=== PATIENT | female | born 1940 | race Caucasian/White ===

== ENCOUNTER → 2016-09-19 | Outpatient (CLI) | payer MEDICARE ==
[~2016-09-19] MED LIST: ACET325T51 PO; ALBU5SOL6 AEROSOL; BISA-82 PO; DOCU-175 PO; FERROUS GLUCON325 M2 PO; HYDR-3989 PO; IPRA0.2S52 AEROSOL; LEVO100T12 PO; MELA1TAB16 PO; MIRT15TA6 PO; OMEP20CA10 PO; ONDA-56 PO; POLY17PO6 PO; POTA500T PO
[2016-09-19 07:46] LABS: BLOOD, URINE NEGATIVE (NEGATIVE); COLOR,URINE YELLOW (YELLOW); LEUKOCYTE ESTERASE ,URINE TRACE (NEGATIVE); NITRITE,URINE NEGATIVE (NEGATIVE); UROBILINOGEN,URINE 0.2 EU/DL (NORMAL)
== END ==
LOC: LABN.PM 07:30
PROVIDERS: ATTEND Family Medicine
DX: N39.0 Urinary tract infection, site not specified (principal)
CPT/HCPCS: 81003; 87086

== ENCOUNTER → 2016-09-30 | Outpatient (CLI) | payer MEDICARE ==
[2016-09-30 07:08] LABS: BASOPHILS % (AUTO) 0.5 % (0-2); EOSINOPHILS % (AUTO) 0.2 % (0-4); HCT - HEMATOCRIT 39.1 % (36-46); LYMPHOCYTES # (AUTO) 1.6 T/MM3 (1-4.8); LYMPHOCYTES % (AUTO) 38.2 % (23-45); MEAN CORPUSCULAR HGB 33.8 UUG (26-34); MEAN CORPUSCULAR HGB CONC(MCHC 33.2 GM/DL (31-37); MEAN CORPUSCULAR VOLUME 101.6 UM3 (80-100); MEAN PLATELET VOLUME 9.1 UM3 (9.4-12.4); MONOCYTES # (AUTO) 0.3 T/MM3 (0-0.8); MONOCYTES % (AUTO) 7.8 % (0-9.0); NEUTROPHILS #(AUTO)-ABSOLUTE 2.2 T/MM3 (1.8-7.7); NEUTROPHILS % (AUTO) 53.3 % (33-66); RED BLOOD COUNT 3.85 M/MM3 (4.00-5.20); WBC - WHITE BLOOD COUNT 4.1 T/MM3 (4.5-11.0)
== END ==
LOC: LABNH.PM 01:56
PROVIDERS: ATTEND Internal Medicine Hematology & Oncology
DX: D64.9 Anemia, unspecified (principal)
CPT/HCPCS: 36415; 85025; P9604

== ENCOUNTER 2017-11-05 15:37 | Inpatient (IN) ==
--- NOTE | 2017-11-05 15:45 | Emergency Department Report ---
Fall HPI - General Stated Complaint: L Femur FX Time Seen by Provider: 11/05/17 15:44 Source: patient, family, EMS Mode of arrival: EMS Limitations: physical limitation - History of Present Illness HPI Narrative: Patient is a 77-year-old female brought to the emergency room for evaluation of left hip fracture. Patient fell at the skilled nursing, her single is not sure if she hit her head. X-rays were done as an outpatient and patient was found have a femur fracture. EMS was called and patient was referred to the emergency department for further evaluation. Patient does have significant dementia, minimal response to questions - Related Data Home Medications Medication Instructions Recorded Confirmed Acetaminophen 650 mg PO Q4HR PRN #0 08/27/15 11/05/17 Melatonin/Pyridoxine [Melatonin 5 5 mg PO HS #0 08/27/15 11/05/17 mg Tablet] Dextran 70/Hypromellose 1 drop EACH EYE Q6H 11/05/17 11/05/17 [Artificial Tears Eye Drops] Famotidine [Pepcid] 20 mg PO DAILY 11/05/17 11/05/17 Levothyroxine Tab [Synthroid] 50 mcg PO DAILY 11/05/17 11/05/17 Meloxicam [Meloxicam] 7.5 mg PO HS 11/05/17 11/05/17 Milk of Magnesia [Mom] 30 ml PO DAILY PRN 11/05/17 11/05/17 OLANZapine [Zyprexa] 2.5 mg PO HS 11/05/17 11/05/17 PEG 3350 17gm PACKET [Miralax] 17 gm PO DAILY 11/05/17 11/05/17 Sertraline [Zoloft] 100 mg PO DAILY 11/05/17 11/05/17 Tramadol [Ultram] 50 - 100 mg PO Q6H PRN 11/05/17 11/05/17 Allergies Allergy/AdvReac Type Severity Reaction Status Date / Time No Known Drug Allergies Allergy Unknown Verified 11/05/17 15:53 Review of Systems Limitations: ROS unobtainable due to patient's medical condition PFSH Patient Stated Medical History Dementia Yes: frontotemporal dementia Other GI Yes: colon cancer Hx Incontinence Yes Chemotherapy Yes: many years ago for colon cancer Depression Yes Other Behavioral Health Yes: had some visual hallucinations, paranoia - Social History Smoking status: Never smoker Substance use type: does not use Alcohol intake frequency: does not drink Physical Exam - General General appearance: alert - Head Head exam: normocephalic, other (patient has old bruising around left orbit nontender to palpation of bony structures) - Eye Eye exam: Present: PERRL, EOMI - ENT ENT exam: Present: normal oropharynx, mucous membranes moist - Neck Neck exam: Present: trachea midline. Absent: tenderness - Chest Chest inspection: Present: symmetric chest wall rise. Absent: tenderness - Respiratory Respiratory exam: Present: normal lung sounds bilaterally. Absent: respiratory distress, wheezes, stridor - Cardiovascular Cardiovascular exam: Present: regular rate, normal rhythm, normal heart sounds - Abdominal Exam Abdominal exam: Present: soft, normal bowel sounds. Absent: distention, tenderness - Extremities Exam Extremities exam: Present: other (patient is tender to palpation of left upper femur, does not want to move left lower extremity) - Skin Skin exam: Present: warm, dry - Neurological Exam Neurological exam: Present: alert Course Vital Signs Temperature 98.4 F 11/05/17 15:37 Pulse Rate 80 11/05/17 15:37 Respiratory Rate 19 11/05/17 15:37 Blood Pressure 124/86 11/05/17 15:37 Pulse Oximetry 94 11/05/17 15:37 Temperature 98.0 F 11/09/17 16:13 Pulse Rate 90 11/09/17 16:36 Respiratory Rate 16 11/09/17 16:13 Blood Pressure 147/96 H 11/09/17 16:13 Pulse Oximetry 95 11/09/17 16:13 Fall - Differential Diagnosis Likely: syncope, dislocation of shoulder region, fracture of wrist, compression fracture, concussion with loss of consciousness, concussion without loss of consciousness - Medical Records Attestation: I reviewed the patient's medical records. - Lab Data Attestation: I reviewed the patient's lab results. Result diagrams: 11/09/17 03:36 11/09/17 03:36 Lab Results 11/05/17 11/05/17 11/05/17 Range/Units 16:03 16:03 16:13 WBC 12.3 H (4.5-11.0) T/MM3 RBC 3.32 L (4.00-5.20) M/MM3 Hgb 10.9 L (12-16) GM/DL Hct 32.6 L (36-46) % MCV 98.2 (80-100) UM3 MCH 32.8 (26-34) UUG MCHC 33.4 (31-37) GM/DL RDW Std Deviation 50.3 H (36.9-50.2) FL Plt Count 161 (130-400) T/MM3 MPV 9.7 (9.4-12.4) UM3 Immature Gran % (Auto) 0.2 (0.0-0.5) % Neut % (Auto) 81.8 H (33-66) % Lymph % (Auto) 9.2 L (23-45) % [place] % (Auto) 8.6 (0-9.0) % Eos % (Auto) 0.0 (0-4) % Baso % (Auto) 0.2 (0-2) % Neut # (Auto) 10.1 H (1.8-7.7) T/MM3 Lymph # (Auto) 1.1 (1-4.8) T/MM3 [place] # (Auto) 1.1 H (0-0.8) T/MM3 Eos # (Auto) 0.0 (0-0.5) T/MM3 Baso # (Auto) 0.0 (0-0.2) T/MM3 Abs Immat Gran (auto) 0.03 (0.00-0.03) T/MM3 Turbidity < 20 (0-20) Sodium 141 (134-144) MEQ/L Potassium 3.9 (3.6-5) MEQ/L Chloride 105 (98-107) MEQ/L Carbon Dioxide 25 (22-30) MEQ/L Anion Gap 11 (5-15) meq/L BUN 29.0 H (7-17) MG/DL Creatinine 0.5 L (0.7-1.2) mg/dL GFR Calculation 119 BUN/Creatinine Ratio 58 H (6-26) RATIO Glucose 124 H (65-110) MG/DL Calculated Osmolality 278 (261-280) MOSM/KG Calcium 8.8 (8.4-10.2) MG/DL Total Bilirubin 0.30 (0.20-1.30) MG/DL Icterus Index < 2 (0-7) AST 32 (14-36) U/L ALT 31 (1-35) U/L Alkaline Phosphatase 115 (38-126) U/L Total Protein 6.0 L (6.3-8.2) g/dL Albumin 3.4 L (3.5-5.0) g/dL Globulin 2.6 (2.4-3.6) G/DL Albumin/Globulin Ratio 1.3 (1.1-2.2) RATIO Specimen Hemolysis < 15 (0-25) Ur Collection Type Urine, void-cc/notcc Urine Color Yellow (YELLOW) Urine Clarity Clear Urine pH 5.5 (5.0-8.0) Ur Specific [place] >=1.030 H (1.015-1.025) Urine Protein Trace A (NEGATIVE) Urine Glucose (UA) Negative (NEGATIVE) Urine Ketones Negative (NEGATIVE) Urine Occult Blood Trace-intact (NEGATIVE) Urine Nitrate Negative (NEGATIVE) Urine Bilirubin Negative (NEGATIVE) Urine Urobilinogen 0.2 (NORMAL) EU/DL Ur Leukocyte Esterase 1+ A (NEGATIVE) Urine RBC 0-1 (0-3) /HPF Urine WBC 1-3 (0-5) /HPF Ur Squamous Epith Cells 0-5 Urine Bacteria Trace H (NEGATIVE) Urine Mucus Present Ur Culture Indicated? Cult not indicated Blood Type Antibody Screen Crossmatch (AHG) 11/05/17 Range/Units 16:24 WBC (4.5-11.0) T/MM3 RBC (4.00-5.20) M/MM3 Hgb (12-16) GM/DL Hct (36-46) % MCV (80-100) UM3 MCH (26-34) UUG MCHC (31-37) GM/DL RDW Std Deviation (36.9-50.2) FL Plt Count (130-400) T/MM3 MPV (9.4-12.4) UM3 Immature Gran % (Auto) (0.0-0.5) % Neut % (Auto) (33-66) % Lymph % (Auto) (23-45) % [place] % (Auto) (0-9.0) % Eos % (Auto) (0-4) % Baso % (Auto) (0-2) % Neut # (Auto) (1.8-7.7) T/MM3 Lymph # (Auto) (1-4.8) T/MM3 [place] # (Auto) (0-0.8) T/MM3 Eos # (Auto) (0-0.5) T/MM3 Baso # (Auto) (0-0.2) T/MM3 Abs Immat Gran (auto) (0.00-0.03) T/MM3 Turbidity (0-20) Sodium (134-144) MEQ/L Potassium (3.6-5) MEQ/L Chloride (98-107) MEQ/L Carbon Dioxide (22-30) MEQ/L Anion Gap (5-15) meq/L BUN (7-17) MG/DL Creatinine (0.7-1.2) mg/dL GFR Calculation BUN/Creatinine Ratio (6-26) RATIO Glucose (65-110) MG/DL Calculated Osmolality (261-280) MOSM/KG Calcium (8.4-10.2) MG/DL Total Bilirubin (0.20-1.30) MG/DL Icterus Index (0-7) AST (14-36) U/L ALT (1-35) U/L Alkaline Phosphatase (38-126) U/L Total Protein (6.3-8.2) g/dL Albumin (3.5-5.0) g/dL Globulin (2.4-3.6) G/DL Albumin/Globulin Ratio (1.1-2.2) RATIO Specimen Hemolysis (0-25) Ur Collection Type Urine Color (YELLOW) Urine Clarity Urine pH (5.0-8.0) Ur Specific [place] (1.015-1.025) Urine Protein (NEGATIVE) Urine Glucose (UA) (NEGATIVE) Urine Ketones (NEGATIVE) Urine Occult Blood (NEGATIVE) Urine Nitrate (NEGATIVE) Urine Bilirubin (NEGATIVE) Urine Urobilinogen (NORMAL) EU/DL Ur Leukocyte Esterase (NEGATIVE) Urine RBC (0-3) /HPF Urine WBC (0-5) /HPF Ur Squamous Epith Cells Urine Bacteria (NEGATIVE) Urine Mucus Ur Culture Indicated? Blood Type O Positive Antibody Screen Negative Crossmatch (AHG) See Detail - Radiology Data Attestation: I reviewed the patient's radiology results. Left femur fracture Right shoulder: Subacute surgical neck fracture humerus CT head: Small subdural hematoma acute Disposition Clinical Impression: Subdural hematoma Intertrochanteric fracture of left hip Qualifiers: Encounter type: initial encounter Fracture type: closed Fracture alignment: displaced Qualified Code(s): S72.142A - Displaced intertrochanteric fracture of left femur, initial encounter for closed fracture Fracture of surgical neck of right humerus Qualifiers: Encounter type: subsequent encounter Fracture type: closed Fracture morphology : unspecified fracture morphology Fracture alignment: displaced Fracture healing : with routine healing Qualified Code(s): S42.211D - Unspecified displaced fracture of surgical neck of right humerus, subsequent encounter for fracture with routine healing Disposition: 02 To [facility] Acute Care Condition: Stable Time of Disposition: 17:35 - Seen By: physician
[2017-11-05] MEDS ORDERED: FentaNYL 100 MCG/2 ML INJECTION IVP ONE (16:21)
[2017-11-05] MEDS: SALINE FLUSH 10ml SYRINGE IVF PRN (16:27)
--- NOTE | 2017-11-05 16:51 | CT Scan Report ---
Indication: fall, head injury contusion above the left eyebrow PROCEDURE: CT head/brain wo con: Encounter: Initial Comparison: April 24, 2017 Technique: Axial CT images through the head were performed without contrast. Iterative Reconstruction dose reducing technique was utilized. FINDINGS: Small area of acute subdural hematoma in the left frontal region measuring 2 x 0.5 cm on axial image #32. Prominent large left frontal subdural hygroma. Moderate to severe generalized atrophy. The ventricles are of normal size, shape, and configuration for the patient's age. There is no evidence of acute midline displacement or mass effect. There are scattered areas of low attenuation in the white matter which most likely represent changes of chronic microvascular ischemia. The CT attenuation of the brain parenchyma is otherwise normal within the cerebellum, brain stem, and cerebral hemispheres. The tympanic cavities and mastoid air cells are free of appreciable disease. There are no definite fractures of the skull base, calvarium, or visualized portion of the midface. IMPRESSION: Small acute left frontal subdural hematoma. Result was discussed with the ordering physician at 1645 on November 05, 2017. .
--- NOTE | 2017-11-05 16:53 | XRay Report ---
Indication: preop intratrochanteric hip fracture PROCEDURE: XR chest 1V: Encounter: Initial Comparison: October 13, 2014 Findings: The lungs are stable in appearance without new focal airspace consolidation. There is no pleural effusion or pneumothorax. The heart size, pulmonary vascularity and mediastinal contours are unchanged. Right IJ port. Impacted right head fracture with mild displacement. IMPRESSION: 1. Right humeral head fracture. 2. No acute cardiopulmonary disease. .
--- NOTE | 2017-11-05 16:58 | XRay Report ---
Indication: fall prior shoulder fracture evaluate PROCEDURE: XR shoulder RT 2-3 views: Encounter: Initial Comparison: None Findings: There is a impacted comminuted fracture of the right humeral head and surgical neck with medial and posterior rotation of the proximal fracture fragment. No additional acute fracture. No dislocation. Overlying soft tissue swelling. Impression: Closed posttraumatic humeral head and surgical neck fracture. .
--- NOTE | 2017-11-05 18:06 | History & Physical Report ---
History of Present Illness Date: 11/05/17 Chief complaint: Fall HPI: Mara Boland is a 77 y/o female with Frontotemporal dementia who presents to [facility] via EMS for evaluation of injuries sustained from fall trauma today. Resides at [facility] in [place], [place] under the care of Dr Brunson. Family reports dementia has been progressive over past months. Her level of alertness and interaction varies. Today, had fall trauma round 1230 this afternoon. Report of hitting head but not losing consciousness. Mobile x-ray obtain of her left hip revealing left intertrochanteric femur fracture. Patient transported to [facility] EMS for evaluation. Was give 25mcg Fenatyl en route. In ER, CXR showing no acute pathology, UA negative for infection, CMP remarkable for BUN at 29 and glucose of 124. CT brain showed small acute left frontal subdural hematoma. 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 Family did not feel patient would wished to be transferred to [place] for neurosurgical intervention. With her hip fracture, they are open to staying at [facility] for surgical repair of her hip fracture primarily to improve her comfort level. Family has worry the functional recovery from hip surgery will be challenging due to her dementia. Indeed, she is still recovering from an old right humeral fracture-has decreased mobility/function to right shoulder and variable pain. Dr Chambers contacted from ED regarding hip fracture. Dr Baptiste contacted and arrangements for inpatient admission at [facility] made. Anticipated length of stay is thought to be greater than 2 midnights. Review of Systems ROS unobtainable: due to mental status (Demenita as well as patient having very decreased LOC at time of my evalution) Past Medical History Medical History Updates: Dementia, Hypothyroidism, OA, Fibromyalgia, GERD, Insomnia, Dry Eyes, Contispation, Colon cancer-with hx resection and chemo, Anxiety disorder Surgical History: Hx colon resection for colon cancer, Hx back fusion, Hx knee replacement, Hx port placement Family History: Unable to Obtain (Demenita limits) - Social History Smoking status: Former smoker (Quit 40+ years ago) Substance use type: does not use Alcohol intake: never Housing: [facility] Current occupational status: retired Current residence: [facility] Social history: Dr Brunson PCP. Medications Home Medications Medication Instructions Recorded Confirmed Type Acetaminophen 650 mg PO Q4HR PRN #0 08/27/15 11/05/17 History Melatonin/Pyridoxine [Melatonin 5 5 mg PO HS #0 08/27/15 11/05/17 History mg Tablet] Dextran 70/Hypromellose 1 drop EACH EYE Q6H 11/05/17 11/05/17 History [Artificial Tears Eye Drops] Famotidine [Pepcid] 20 mg PO DAILY 11/05/17 11/05/17 History Levothyroxine Tab [Synthroid] 50 mcg PO DAILY 11/05/17 11/05/17 History Meloxicam [Meloxicam] 7.5 mg PO HS 11/05/17 11/05/17 History Milk of Magnesia [Mom] 30 ml PO DAILY PRN 11/05/17 11/05/17 History OLANZapine [Zyprexa] 2.5 mg PO HS 11/05/17 11/05/17 History PEG 3350 17gm PACKET [Miralax] 17 gm PO DAILY 11/05/17 11/05/17 History Sertraline [Zoloft] 100 mg PO DAILY 11/05/17 11/05/17 History Tramadol [Ultram] 50 - 100 mg PO Q6H PRN 11/05/17 11/05/17 History Allergies Allergy/AdvReac Type Severity Reaction Status Date / Time No Known Drug Allergies Allergy Unknown Verified 11/05/17 15:53 Exam Vital Signs: Temperature 98.4 F 11/05/17 15:37 Pulse Rate 74 11/05/17 17:15 Respiratory Rate 15 11/05/17 17:15 Blood Pressure 121/65 11/05/17 17:15 Pulse Oximetry 95 11/05/17 17:15 Height/Weight/BMI: Height 1.57 m Weight 62.9 kg - Constitutional Present: well nourished, well developed, somnolent - Routine HEENT Exam Head: Present: normocephalic ENT: Present: mucous membranes moist - Routine Neck Exam Present: supple, trachea midline - Routine Respiratory Exam Present: decreased breath sounds. Absent: rales, respiratory distress, rhonchi , stridor, wheezes, crackles - Routine Cardiovascular Exam Present: RRR, no murmur - Routine Abdominal Exam Present: soft, normoactive bowel sounds, non distended, non tender - Routine Extremities Exam Present: edema (+1 BLE), pulses intact. Absent: cyanosis, clubbing - Routine Skin Exam Present: dry, warm - Routine Neurological Exam Somnolent - Routine Psychiatric Exam Comments: Somnolent Results - Labs CBC & Chem 7: 11/05/17 16:03 11/05/17 16:03 Assessment and Plan (1) Intertrochanteric fracture of left hip Current visit: Yes Status: Acute (2) Subdural hematoma Current visit: Yes Status: Acute (3) Fracture of surgical neck of right humerus Current visit: Yes Status: Chronic Assessment and Plan: Assessment Left intertrochanteric femur fracture Subdural Hematoma Mechanical fall Leukocytosis - suspect stress reaction Hyperglycemia Fracture of surgical neck of right humerus - chronic Dementia Hypothyroidism GERD Constipation COPD OA Anxiety disorder Plan Will admit patient to inpatient status at [facility] under the care of Dr Baptiste Anticipate greater than 2 midnights of care needed. Consult with Dr Chambers for orthopedic evaluation and surgical recommendations for hip fracture. Pain control with MS. Will continue with patient home acetaminophen and tramadol as needed. Perchlorperazine and ondansetron as needed for nausea. Bed rest preoperatively to minimize pain. Work to mobilize patient with PT/OT post op. Harvey to dependent drainage to monitor urine output and minimized need to get up preop. Work to remove Harvey as soon as possible post op. IS for pulmonary toilet. Start routine Senna Plus BID to help bowel function. Continue pt's routine Miralax and prn medications. Patient has been typed and screened in anticipation of potential blood loss from her injury/surgery. Check Vitamin D level secondary to fragility fracture. Start calcium with vit D 600 BID. With patient's advanced dementia will hold on consult for metabolic bone health. NPO after midnight in anticipation of surgery tomorrow. Start NS at 75cc/hr this evening for hydration. Recheck CT brain tomorrow am to monitor subdural hematoma. Recommend against use of Lovenox in post op setting due to SDH. Repeat CBC in am due to leukocytosis and to monitor hemoglobin. Will recheck BMP in am due to IVF use. Home medications will continue. Involve case management to help with discharge disposition - anticipate return to [facility] for care at discharge. Discussed with family about surgical intervention. They are agreeable with surgery from a comfort measure. Their concern is that rehabilitation gain will be minimal and slow due to her dementia. Code status discussed. Family reiterated Do Not Resuscitate, which is in concordance with [place] documentation. Care to return to Dr Brunson at time of discharge from [facility]. DVT Prophylaxis: SCD's GI Prophylaxis: Pepcid Resuscitation Status: Do Not Resuscitate - Time spent with patient Time with patient PN: 70 minutes - Physician Narrative Narrative: Date: 11/05/17 Time: 1800 Hospital Course Summary Disclaimer: The visit summary below is not to be considered part of the above Progress Note. Hospital Course: 11/05/17 Admit patient to inpatient status at [facility] under the care of Dr Baptiste. Left intertrochanteric hip fracture requiring surgical repair. Anticipate greater than 2 midnights of care needed. Consult with Dr Chambers for orthopedic evaluation and surgical recommendations for hip fracture. Pain control with MS. Will continue with patient home acetaminophen and tramadol as needed. Perchlorperazine and ondansetron as needed for nausea. Bed rest preoperatively to minimize pain. Work to mobilize patient with PT/OT post op. Harvey to dependent drainage to monitor urine output and minimized need to get up preop. Work to remove Harvey as soon as possible post op. IS for pulmonary toilet. Start routine Senna Plus BID to help bowel function. Continue pt's routine Miralax and prn medications. Patient has been typed and screened in anticipation of potential blood loss from her injury/surgery. Check Vitamin D level secondary to fragility fracture. Start calcium with vit D 600 BID. With patient's advanced dementia will hold on consult for metabolic bone health. NPO after midnight in anticipation of surgery tomorrow. Start NS at 75cc/hr this evening for hydration. Recheck CT brain tomorrow am to monitor subdural hematoma. Recommend against use of Lovenox in post op setting due to SDH. Repeat CBC in am due to leukocytosis and to monitor hemoglobin. Will recheck BMP in am due to IVF use. Home medications will continue. Involve case management to help with discharge disposition - anticipate return to [facility] for care at discharge. Discussed with family about surgical intervention. They are agreeable with surgery from a comfort measure. Their concern is that rehabilitation gain will be minimal and slow due to her dementia. Code status discussed. Family reiterated Do Not Resuscitate, which is in concordance with [place] documentation. Care to return to Dr Brunson at time of discharge from [facility].
[2017-11-05] MEDS ORDERED: POLYETHYL GLYCOL 3350 17gm PACKET PO PRN (18:19)
[2017-11-05] MEDS ORDERED: PROCHLORPERAZINE 10 MG/2 ML INJECTION IVP PRN (18:19)
[2017-11-05] MEDS ORDERED: HALOPERIDOL 5 MG/ML INJECTION IVP PRN (18:19)
[2017-11-05] MEDS ORDERED: TRAMADOL 50 MG TABLET PO PRN (18:19)
[2017-11-05] MEDS ORDERED: ONDANSETRON ODT 4 MG TABLET PO PRN (18:19)
--- NOTE | 2017-11-05 18:30 | Orthopedic Consult Note ---
Orthopedic Consultation HPI - Consultation Info Consult Date: 11/06/17 Attending Physician: Dionicio Baptiste MD - History of Present Illness Mara Boland is a resident at [facility] in [place], [place]. She fell this morning around 0030 attempting to get out of bed. Reportedly she fell and hit head but did not have LOC. Xray obtained revealing left intertrochanteric femur fracture. Patient was transported via EMS to [facility] for further evaluation. CT brain showed small acute left frontal subdural hematoma. Family did not feel patient would wished to be transferred to [place] for neurosurgical intervention. Family would like to proceed with surgical repair of her hip fracture to improve comfort per hospitalist. Patient fell 3 weeks ago and sustained right humeral head and surgical neck fracture 3 weeks ago. Daughter states due to her age and medical comorbidities they decided to treat conservatively. Patient has been in sling and moving as tolerated. States she hasn't complained of pain with right arm. Prior to this fall patient had been ambulating well with a walker. Since then nursing has been transporting with wheelchair. Daughter (DPOA) reports her dementia has been progressive over the past couple of months. Review of Systems ROS unobtainable: due to mental status [facility] Medical History Updates: Dementia, Hypothyroidism, OA, Fibromyalgia, GERD, Insomnia, Dry Eyes, Contispation, Colon cancer-with hx resection and chemo, Anxiety disorder Surgical History: Hx colon resection for colon cancer, Hx back fusion, Hx knee replacement, Hx port placement - Social History Smoking status: Former smoker (Quit 40+ years ago) Medications Home Medications Medication Instructions Recorded Confirmed Type Acetaminophen 650 mg PO Q4HR PRN #0 08/27/15 11/05/17 History Melatonin/Pyridoxine [Melatonin 5 5 mg PO HS #0 08/27/15 11/05/17 History mg Tablet] Dextran 70/Hypromellose 1 drop EACH EYE Q6H 11/05/17 11/05/17 History [Artificial Tears Eye Drops] Famotidine [Pepcid] 20 mg PO DAILY 11/05/17 11/05/17 History Levothyroxine Tab [Synthroid] 50 mcg PO DAILY 11/05/17 11/05/17 History Meloxicam [Meloxicam] 7.5 mg PO HS 11/05/17 11/05/17 History Milk of Magnesia [Mom] 30 ml PO DAILY PRN 11/05/17 11/05/17 History OLANZapine [Zyprexa] 2.5 mg PO HS 11/05/17 11/05/17 History PEG 3350 17gm PACKET [Miralax] 17 gm PO DAILY 11/05/17 11/05/17 History Sertraline [Zoloft] 100 mg PO DAILY 11/05/17 11/05/17 History Tramadol [Ultram] 50 - 100 mg PO Q6H PRN 11/05/17 11/05/17 History Allergies Allergy/AdvReac Type Severity Reaction Status Date / Time No Known Drug Allergies Allergy Unknown Verified 11/05/17 15:53 Exam - Constitutional Vital Signs: Temperature 98.4 F 11/05/17 15:37 Pulse Rate 74 11/05/17 17:15 Respiratory Rate 15 11/05/17 17:15 Blood Pressure 121/65 11/05/17 17:15 Pulse Oximetry 95 11/05/17 17:15 General: frail appearing, lethargic Orientation: confused Limitations: altered mental status - RUE Postoperative Appearance: extremity compartments are soft and nontender Vascular: radial pulse within normal limits - RLE Vascular: dorsalis pedis pulse within normal limits Right Lower Extremity comments: Left leg shortened and internally rotated. - Labs Result Diagrams: 11/06/17 04:24 11/06/17 04:24 Impression and Recommendation (1) Fracture of surgical neck of right humerus Current visit: Yes Qualifiers: Encounter type: subsequent encounter Fracture type: closed Fracture morphology: unspecified fracture morphology Fracture alignment: displaced Fracture healing: with routine healing Qualified Code(s): S42.211D - Unspecified displaced fracture of surgical neck of right humerus, subsequent encounter for fracture with routine healing Status: Chronic Sling to right arm at this time, will keep immobilized. May remove for ROM of elbow and wrist. (2) Intertrochanteric fracture of left hip Current visit: Yes Qualifiers: Encounter type: initial encounter Fracture type: closed Fracture alignment: displaced Qualified Code(s): S72.142A - Displaced intertrochanteric fracture of left femur, initial encounter for closed fracture Status: Acute NPO after midnight Planned left hip ORIF with long gamma nail tomorrow at [address] Chambers pending stability of subdural hematoma. Will need hospitalist recommendations for anticoagulation therapy post- operatively. Hospitalist managing medically. Hospital Course Summary Disclaimer: The visit summary below is not to be considered part of the above Progress Note.
[2017-11-05] MEDS ORDERED: FALL RISK - PHARMACY CONSULT MC ONE (18:33)
[2017-11-05 18:34] VITALS: BMI 22.1
[2017-11-05] MEDS: NS 1,000 ML IV SCH ×2 (19:02→23:36)
[2017-11-05] MEDS: REFRESH CELLUVISC 1% Eye Drops 0.4ml EACH EYE SCH ×2 (22:10→23:37)
[2017-11-05] MEDS: CALCIUM 600 + VIT D 400 TABLET PO SCH (22:10)
[2017-11-05] MEDS: MELATONIN 5 MG TABLET PO SCH (22:11)
[2017-11-05] MEDS: OLANZapine 2.5 MG TABLET PO SCH (22:11)
[2017-11-05] MEDS: SENNA + DOCUSATE TABLET PO SCH (22:14)
[2017-11-05] MEDS: MELOXICAM 7.5 MG TABLET PO SCH (22:14)
[2017-11-06] MEDS: NS 1,000 ML IV SCH ×5 (00:26→23:44)
[2017-11-06] MEDS: REFRESH CELLUVISC 1% Eye Drops 0.4ml EACH EYE SCH ×3 (05:44→18:24)
--- NOTE | 2017-11-06 08:46 | CT Scan Report ---
Indication: F/U subdural hematoma PROCEDURE: CT head/brain wo con: Encounter: Initial Comparison: November 05, 2017 Technique: Axial CT images through the head were performed without contrast. Iterative Reconstruction dose reducing technique was utilized. FINDINGS: Small left frontal subdural hematoma is unchanged in size. Moderate to severe atrophy again noted. Chronic left frontal subdural hygroma. No new or worsening areas of hemorrhage. No acute territorial stroke. No midline shift or mass effect. No calvarial fractures seen. Impression: Stable appearance of the small left frontal subdural hematoma. .
[2017-11-06] MEDS: LEVOTHYROXINE 50 MCG TABLET PO SCH (09:06)
[2017-11-06] MEDS: SERTRALINE 100 MG TABLET PO SCH (09:06)
[2017-11-06] MEDS: CALCIUM 600 + VIT D 400 TABLET PO SCH ×2 (09:06→21:23)
[2017-11-06] MEDS: FAMOTIDINE 20 MG TABLET PO SCH (09:06)
[2017-11-06] MEDS: POLYETHYL GLYCOL 3350 17gm PACKET PO SCH (09:06)
[2017-11-06] MEDS: SENNA + DOCUSATE TABLET PO SCH ×2 (09:06→21:24)
[2017-11-06] MEDS ORDERED: CEFAZOLIN 1 G INJECTION IVP ONE (10:05)
[2017-11-06] MEDS ORDERED: FentaNYL 250 MCG/5 ML INJECTION ONE (10:17)
[2017-11-06] MEDS ORDERED: KETAMINE 500 MG/10 ML INJECTION ONE (10:17)
[2017-11-06] MEDS ORDERED: PROPOFOL 500 MG/50 ML VIAL ONE ×2 (10:18→11:49)
--- NOTE | 2017-11-06 10:18 | Anesthesia Preoperative Report ---
Anesthesia Preoperative Record - Date and Time Date: 11/06/17 Preoperative Diagnosis: L Intertrochanteric Femur Fracture NPO Since Date: 11/05/17 NPO Since Time: 00:00 Allergies/Adverse Reactions: Allergies Allergy/AdvReac Type Severity Reaction Status Date / Time No Known Drug Allergies Allergy Unknown Verified 11/05/17 15:53 - Vital Signs Vital Signs: Temperature 97.8 F 11/06/17 09:55 Pulse Rate 90 11/06/17 09:55 Respiratory Rate 26 H 11/06/17 09:55 Blood Pressure 162/75 H 11/06/17 09:55 Pulse Oximetry 94 11/06/17 09:55 Height and Weight: Height 1.57 m Weight 54.8 kg Body Mass Index 22.1 - Medications Inpatient Medications: Current Medications Acetaminophen (Tylenol) 650 mg PO Q4HR PRN PRN Reason: P Artificial Tears (Refresh Celluvisc) 1 drop EACH EYE Q6H [facility] Last Admin: 11/06/17 05:44 Dose: Not Given Calcium/Vitamin D (Caltrate + D) 1 tab PO BID [facility] Last Admin: 11/06/17 09:06 Dose: Not Given Cefazolin Sodium (Kefzol 1 Gm Vial) 1 g IVP PREOP ONE Stop: 11/06/17 10:06 Famotidine (Pepcid) 20 mg PO DAILY [facility] Last Admin: 11/06/17 09:06 Dose: Not Given Haloperidol Lactate (Haldol) 0.5 mg IVP Q4H PRN PRN Reason: Agitation Sodium Chloride (Normal Saline) 1,000 mls @ 100 mls/hr IV .Q10H [facility] Last Infusion: 11/06/17 09:38 Dose: 0 mls/hr Levothyroxine Sodium (Synthroid) 50 mcg PO DAILY [facility] Last Admin: 11/06/17 09:06 Dose: Not Given Magnesium Hydroxide (Mom) 30 ml PO DAILY PRN PRN Reason: Constipation Melatonin (Melatonin) 5 mg PO HS [facility] Last Admin: 11/05/17 22:11 Dose: Not Given Meloxicam (Mobic) 7.5 mg PO HS [facility] Last Admin: 11/05/17 22:14 Dose: Not Given Morphine Sulfate (Morphine Sulfate Inj) 4 mg IVP Q2HR PRN PRN Reason: Pain Olanzapine (Zyprexa) 2.5 mg PO HS [facility] Last Admin: 11/05/17 22:11 Dose: 2.5 mg Ondansetron HCl (Zofran Odt Tablet) 4 mg PO Q6H PRN PRN Reason: Nausea &/or vomiting Polyethylene Glycol (Miralax) 17 gm PO DAILY PRN PRN Reason: Constipation Polyethylene Glycol (Miralax) 17 gm PO DAILY [facility] Last Admin: 11/06/17 09:06 Dose: Not Given Prochlorperazine Edisylate (Compazine Iv) 10 mg IVP Q6H PRN PRN Reason: Nausea &/or vomiting Senna/Docusate Sodium (Senna Plus Tablet) 1 tab PO BID [facility] Last Admin: 11/06/17 09:06 Dose: Not Given Sertraline HCl (Zoloft) 100 mg PO DAILY [facility] Last Admin: 11/06/17 09:06 Dose: Not Given Sodium Chloride (Iv Flush) 10 - 80 ml IVF PRN PRN PRN Reason: Flushing Last Admin: 11/05/17 16:27 Dose: 10 ml Tramadol HCl (Ultram) 50 mg PO Q6HR PRN PRN Reason: Pain Home Medications: Home Medications Medication Instructions Recorded Confirmed Type Acetaminophen 650 mg PO Q4HR PRN #0 08/27/15 11/05/17 History Melatonin/Pyridoxine [Melatonin 5 5 mg PO HS #0 08/27/15 11/05/17 History mg Tablet] Dextran 70/Hypromellose 1 drop EACH EYE Q6H 11/05/17 11/05/17 History [Artificial Tears Eye Drops] Famotidine [Pepcid] 20 mg PO DAILY 11/05/17 11/05/17 History Levothyroxine Tab [Synthroid] 50 mcg PO DAILY 11/05/17 11/05/17 History Meloxicam [Meloxicam] 7.5 mg PO HS 11/05/17 11/05/17 History Milk of Magnesia [Mom] 30 ml PO DAILY PRN 11/05/17 11/05/17 History OLANZapine [Zyprexa] 2.5 mg PO HS 11/05/17 11/05/17 History PEG 3350 17gm PACKET [Miralax] 17 gm PO DAILY 11/05/17 11/05/17 History Sertraline [Zoloft] 100 mg PO DAILY 11/05/17 11/05/17 History Tramadol [Ultram] 50 - 100 mg PO Q6H PRN 11/05/17 11/05/17 History Is Patient on Beta Aminta?: No - Medical History Respiratory: Reports: Chronic Obstructive Pulmonary Disease (COPD) DENIES: Sleep Apnea Cardiovascular: Reports: Hypertension Gastrointestional: Reports: Other (colon cancer) Neuro/Musculoskeletal: Reports: Back Problems (back fusion), Depression, Muscle Weakness, Other (subdural hematoma stable with re-CT) Renal/Endocrine: Reports: Thyroid Disease Other History: Reports: Chemotherapy (many years ago for colon cancer) - Surgical History GI Surgery/Treatments: Reports: Colon Resection, Colonoscopy Musculoskeletal Surgery/Tx: Reports: Total Knee Replacement Reproductive Surgery/Treatment: Reports: Oophorectomy Anesthesia Reactions: None Hx Family Anesthesia Reaction: No History of Motion Sickness: No - Social History Smoking Status: Former smoker (Quit 40+ years ago) Hx Chewing Tobacco Use: No Second Hand Exposure: No Substance Use Type: does not use Alcohol Intake: never Alcohol Intake Frequency: does not drink - Pertinent Findings Laboratory: CBC and BMP 11/06/17 04:24 11/06/17 04:24 BMP 11/06/17 04:24 Sodium 142 Potassium 3.7 Chloride 106 Carbon Dioxide 27 BUN 22.0 H Creatinine 0.5 L Glucose 96 Calcium 8.5 EKG: Sinus Rhythm - Airway Assessment Mallampati Score: II TMD: 3 Fingerbreadths Neck Extension: poor Overall Assessment: no airway concerns - ASA ASA Score: 4 - Plan Anesthesia: General TIVA, General Inhalation Gases - Discussion Discussion: Discussed risks/options/alternatives of anesthesia and questions answered. Patient consents. Nursing pain assessment noted. Present for Discussion: family member Attestation Statement: Prior to the delivery of any anesthetic medication, I examined the patient, developed the plan, obtained the patient's consent and discussed the risk and benefits of the procedure with the patient/guardian. - Additional Information Seen by Anesthesia: Yes
[2017-11-06] MEDS ORDERED: LIDOCAINE 1% (10mg/ml) 30ml SDV INJ ONE (10:37)
[2017-11-06] MEDS ORDERED: BUPIVACAINE 0.25% (2.5mg/ml) PF 30ml INJECTION ONE (10:37)
[2017-11-06] MEDS ORDERED: EPHEDRINE 50mg/ml INJECTION ONE (11:10)
[2017-11-06] MEDS ORDERED: SALINE FLUSH 10ml SYRINGE ONE (11:11)
[2017-11-06] MEDS ORDERED: PHENYLEPHRINE INJ 10 MG/ML VIAL IV ONE (11:13)
[2017-11-06] MEDS ORDERED: BUPIV 0.25% 30ml/LIDO 1% 30ml MIXTURE ID ONE (11:32)
--- NOTE | 2017-11-06 13:19 | Remote Fluorsocopy Report ---
Indication: ORIF LEFT HIP PROCEDURE: RF hip LT 2 view: Encounter: Initial Comparison: None Findings: Six fluoroscopic spot images are submitted for interpretation. Images show open reduction and internal fixation of the intertrochanteric left femoral fracture with placement of an intramedullary nail, compression screw and two distal interlocking screws. Impression: Fluoroscopy as above. Fluoroscopy time is 165.6 seconds. Fluoroscopy dose is 2500 mRad. .
[2017-11-06] MEDS ORDERED: NOZIN NASAL SWAB NAS ONE (13:27)
--- NOTE | 2017-11-06 13:30 | Anesthesia Postoperative Note ---
- Date and Time Date: 11/06/17 Time: 13:29 - Status Patient Participated in Evaluation: Patient Participated in Person Vital Signs: Temperature 97.0 F 11/06/17 13:05 Pulse Rate 80 11/06/17 13:20 Respiratory Rate 16 11/06/17 13:20 Blood Pressure 122/59 11/06/17 13:20 Pulse Oximetry 99 11/06/17 13:20 Respiratory Function: Airway Patent Cardiovascular Function: Regular Pulse EKG: Sinus Rhythm Pain Intensity: 0 Hydration: Taking PO Fluids Complications During Recover: None Apparent - Follow-Up Instructions Instructions: Per Surgeon
--- NOTE | 2017-11-06 13:44 | Operative Note ---
DATE OF OPERATION 11/06/2017 PREOPERATIVE DIAGNOSIS Left three-part intertrochanteric hip fracture. POSTOPERATIVE DIAGNOSIS Left three-part intertrochanteric hip fracture. PROCEDURE Open reduction internal fixation with cephalomedullary device of left three- part intertrochanteric hip fracture. SURGEON Adolph Chambers MD CONTACT OFFICER Remi Del Rio PA-C COMPLICATIONS None ANESTHESIA TIVA with local EBL AND FLUIDS Please see Anesthetic records. DESCRIPTION OF PROCEDURE Mrs. Boland and her left hip were identified and marked in the preoperative holding area. She was brought back to the operating suite and placed supine on the fracture table. She was placed under general anesthesia. Both feet were placed in well-padded traction boots. The left leg was placed into traction and internal rotation and adduction and reduction was confirmed on multiple fluoroscopic views. The right leg was placed into extension without traction. The left lower extremity was then prepped and draped in the normal sterile fashion. Time-out was performed. Local injection was administered at every incision site. A 2-3 cm incision was made proximal to the greater trochanter. Sharp dissection was carried down to the bone and then the proximal femur was opened over a guidepin. A long guidepin was then passed down the femoral diaphysis and then I reamed to a size 12.5. I measured for a 340 mm nail and placed a 340 mm gamma nail over a guide jhonathan. The guide jhonathan was then removed. I then placed a 95 mm lag screw into center-center location to the femoral head over a guidepin. This was done using the aiming arm. I then provided compression to the fracture site by using a compression screw and then locked the lag screw proximally. The aiming arm was then removed. Two distal locking bolts were then placed percutaneously using perfect [place] technique from [id number]. Both were 40 mm screws. Multiple fluoroscopic images were taken of the hip joint itself to make sure that we had not penetrated the cortical bone and to ensure we had good hardware placement. All wounds were thoroughly irrigated and closed in layers. Sterile dressings were placed. She was taken out of traction and off the traction table and then allowed to awake from general anesthesia and taken to the recovery room under the care of Anesthesia. She tolerated the procedure well and there were no complications. JADA
[2017-11-06] MEDS: NOZIN NASAL SWAB NAS SCH ×2 (15:27→21:20)
--- NOTE | 2017-11-06 16:16 | Progress Note ---
- Date 11/06/17 Subjective: F/U: Left intertrochanteric femur fracture, Subdural Hematoma, Mechanical fall Resting comfortably in bed post op. Tolerated surgery well. Repeat CT scan showing stability in SDH. Breathing well post op, on 2L with sats 99-100%. Urine output decreased overnight and IVF increased to 100cc/hr. Non verbal at this time. Objective Vital signs: Temperature 97.0 F 11/06/17 13:23 Pulse Rate 102 H 11/06/17 15:10 Respiratory Rate 14 11/06/17 15:10 Blood Pressure 133/60 11/06/17 15:10 Pulse Oximetry 99 11/06/17 15:10 Height/Weight/BMI: Height 1.57 m Weight 54.8 kg Body Mass Index 22.1 - Constitutional Present: well nourished, well developed, average body habitus - Routine HEENT Exam Head: Present: normocephalic Eye: Present: EOMI - Routine Respiratory Exam Present: decreased breath sounds. Absent: rales, respiratory distress, rhonchi , stridor, wheezes, crackles - Routine Cardiovascular Exam Present: RRR, no murmur - Routine Abdominal Exam Present: soft, non distended, non tender. Absent: normoactive bowel sounds ( Decreased) - Routine Exam Comments: Harvey present - Routine Extremities Exam Present: edema (Trace), pulses intact. Absent: cyanosis, clubbing - Routine Musculoskeletal Exam Musculoskeletal: Present: no clubbing or cyanosis - Routine Skin Exam Present: dry, warm - Routine Neurological Exam Somnolent - Routine Psychiatric Exam Comments: Somnolent Results - Labs CBC & Chem 7: 11/06/17 04:24 11/06/17 04:24 Assessment and Plan (1) Intertrochanteric fracture of left hip Current visit: Yes Status: Acute (2) Subdural hematoma Current visit: Yes Status: Acute (3) Fracture of surgical neck of right humerus Current visit: Yes Status: Chronic Assessment and Plan: Assessment Left intertrochanteric femur fracture Subdural Hematoma Mechanical fall Leukocytosis - suspect stress reaction Hyperglycemia Fracture of surgical neck of right humerus - chronic Dementia Hypothyroidism GERD Constipation COPD OA Anxiety disorder Plan Tolerated surgery well. Will continue with IVF, decreasing as oral drive improves. Continue Harvey to DD as urine output was decreased overnight. Try to remove in near future. Post op pain control. Continue to work for bowel function. PT/OT as able - suspect with patients dementia gains will be slow. CM making care plans for return to [facility] ([place], [place]) for recovery once she is medically stable. Will recheck BMP in am secondary to IVF. Repeat CBC in am to monitor for post op anemia. Case discussed with Dr Chambers pre and post op. Time spent with patient care 25 minutes. DVT Prophylaxis: SCD's Resuscitation Status: Do Not Resuscitate - Time spent with patient Time with patient PN: 25 minutes - Physician Narrative Physician: Dionicio Baptitse MD Narrative: Date: 11/06/17 Time: 1613 Hospital Course Summary Disclaimer: The visit summary below is not to be considered part of the above Progress Note. Hospital Course: 11/05/17 Admit patient to inpatient status at [facility] under the care of Dr Baptiste. Left intertrochanteric hip fracture requiring surgical repair. Anticipate greater than 2 midnights of care needed. Consult with Dr Chambers for orthopedic evaluation and surgical recommendations for hip fracture. Pain control with MS. Will continue with patient home acetaminophen and tramadol as needed. Perchlorperazine and ondansetron as needed for nausea. Bed rest preoperatively to minimize pain. Work to mobilize patient with PT/OT post op. Harvey to dependent drainage to monitor urine output and minimized need to get up preop. Work to remove Harvey as soon as possible post op. IS for pulmonary toilet. Start routine Senna Plus BID to help bowel function. Continue pt's routine Miralax and prn medications. Patient has been typed and screened in anticipation of potential blood loss from her injury/surgery. Check Vitamin D level secondary to fragility fracture. Start calcium with vit D 600 BID. With patient's advanced dementia will hold on consult for metabolic bone health. NPO after midnight in anticipation of surgery tomorrow. Start NS at 75cc/hr this evening for hydration. Recheck CT brain tomorrow am to monitor subdural hematoma. Recommend against use of Lovenox in post op setting due to SDH. Repeat CBC in am due to leukocytosis and to monitor hemoglobin. Will recheck BMP in am due to IVF use. Home medications will continue. Involve case management to help with discharge disposition - anticipate return to [facility] for care at discharge. Discussed with family about surgical intervention. They are agreeable with surgery from a comfort measure. Their concern is that rehabilitation gain will be minimal and slow due to her dementia. Code status discussed. Family reiterated Do Not Resuscitate, which is in concordance with CT documentation. Care to return to Dr Brunson at time of discharge from [facility]. 11/06/17 OP Day: ORIF with cephalomedullary device of left three-part intertrochanteric hip fracture. Tolerated surgery well. Will continue with IVF, decreasing as oral drive improves. Continue Harvey to DD as urine output was decreased overnight. Try to remove in near future. Post op pain control. Continue to work for bowel function. PT/OT as able - suspect with patients dementia gains will be slow. CM making care plans for return to [facility] ([place], [place]) for recovery once she is medically stable.
[2017-11-06] MEDS: CEFAZOLIN 1 G in NS 100 ML IV SCH (19:10)
[2017-11-06] MEDS: OLANZapine 2.5 MG TABLET PO SCH (21:21)
[2017-11-06] MEDS: MELOXICAM 7.5 MG TABLET PO SCH (21:22)
[2017-11-06] MEDS: MELATONIN 5 MG TABLET PO SCH (21:24)
[2017-11-07] MEDS: REFRESH CELLUVISC 1% Eye Drops 0.4ml EACH EYE SCH ×5 (00:47→23:52)
[2017-11-07] MEDS: CEFAZOLIN 1 G in NS 100 ML IV SCH (04:13)
[2017-11-07] MEDS: NOZIN NASAL SWAB NAS SCH ×3 (05:29→21:14)
[2017-11-07] MEDS ORDERED: NS FLUSH BAG 500ml IV PRN ×2 (06:19→07:46)
--- NOTE | 2017-11-07 06:41 | Orthopedic Progress Note ---
Date: Date: 11/07/17 Time: 637 Subjective/Severity of Illness: Mara is resting comfortably. She retracts from my exam, but does not open her eyes or converse. Hbg just drawn is 5.7 and supposedly re run to confirm by lab staff. I asked the nurse to call the hospitalist to make them aware. VVS, afebrile, renal function is stable. Has known left subdural hematoma. Orthopedic Exam Vital signs: Temperature 97.9 F 11/07/17 04:00 Pulse Rate 97 11/07/17 04:00 Respiratory Rate 16 11/07/17 04:00 Blood Pressure 113/65 11/07/17 04:00 Pulse Oximetry 96 11/07/17 04:00 - Constitutional General Appearance: Present: no acute distress, somnolent - Respiratory Exam Present: non-labored - Cardiovascular Exam Present: pedal pulses intact - Abdominal Exam Present: soft - Extremities Exam Present: edema (Trace), pulses intact. Absent: cyanosis, clubbing - Dressing Dressing: intact, bloody drainage (non saturated.) - Integumentary Exam Present: pink, warm, dry - Neurological Exam Present: other (downgoing Babinski) - Labs Result Diagrams: 11/07/17 04:23 11/07/17 04:23 Abnormal lab results 11/07/17 11/07/17 Range/Units 04:23 04:23 RBC 1.74 L (4.00-5.20) M/MM3 Hgb 5.7 L* D (12-16) GM/DL Hct 17.9 L* D (36-46) % MCV 102.9 H (80-100) UM3 RDW Std Deviation 51.8 H (36.9-50.2) FL Plt Count 92 L (130-400) T/MM3 Neut % (Auto) 74.1 H (33-66) % Lymph % (Auto) 16.1 L (23-45) % Potassium 3.3 L (3.6-5) MEQ/L Chloride 112 H (98-107) MEQ/L Creatinine 0.4 L (0.7-1.2) mg/dL BUN/Creatinine Ratio 33 H (6-26) RATIO Calcium 7.5 L D (8.4-10.2) MG/DL H & H 11/06/17 11/07/17 Range/Units 04:24 04:23 Hgb 9.2 L D 5.7 L* D (12-16) GM/DL Hct 28.8 L D 17.9 L* D (36-46) % Orthopedic Assessment and Plan (1) Intertrochanteric fracture of left hip Status: Acute Qualifiers: Encounter type: initial encounter Fracture type: closed Fracture alignment: displaced Qualified Code(s): S72.142A - Displaced intertrochanteric fracture of left femur, initial encounter for closed fracture Assessment and Plan: s/p left long IM nail for IT fracture by Dr. Chambers on 11/06/17 PT/OT for mobilization once able in view of anemia, and comorbid conditions No anticoagulation presently due to subdural hematoma; will continue with SCD's and appreciate hospitalist input on this matter. (2) Fracture of surgical neck of right humerus Status: Chronic Qualifiers: Encounter type: subsequent encounter Fracture type: closed Fracture morphology: unspecified fracture morphology Fracture alignment: displaced Fracture healing: with routine healing Qualified Code(s): S42.211D - Unspecified displaced fracture of surgical neck of right humerus, subsequent encounter for fracture with routine healing Assessment and Plan: continue with sling for comfort; non operative care. (3) Anemia Status: Acute Assessment and Plan: decision for transfusion as per hospitalist. Hospital Course Summary Disclaimer: The visit summary below is not to be considered part of the above Progress Note. Hospital Course: 11/05/17 Admit [place] [facility] [place] the care of Dr Baptiste. Left intertrochanteric hip fracture requiring surgical repair. Anticipate greater than 2 midnights of care needed. Consult with Dr Chambers for orthopedic evaluation and surgical recommendations for hip fracture. Pain control with MS. Will continue with patient home acetaminophen and tramadol as needed. Perchlorperazine and ondansetron as needed for nausea. Bed rest preoperatively to minimize pain. Work to mobilize patient with PT/OT post op. Harvey to dependent drainage to monitor urine output and minimized need to get up preop. Work to remove Harvey as soon as possible post op. IS for pulmonary toilet. Start routine Senna Plus BID to help bowel function. Continue pt's routine Miralax and prn medications. Patient has been typed and screened in anticipation of potential blood loss from her injury/surgery. Check Vitamin D level secondary to fragility fracture. Start calcium with vit D 600 BID. With patient's advanced dementia will hold on consult for metabolic bone health. NPO after midnight in anticipation of surgery tomorrow. Start NS at 75cc/hr this evening for hydration. Recheck CT brain tomorrow am to monitor subdural hematoma. Recommend against use of Lovenox in post op setting due to SDH. Repeat CBC in am due to leukocytosis and to monitor hemoglobin. Will recheck BMP in am due to IVF use. Home medications will continue. Involve case management to help with discharge disposition - anticipate return to [facility] for care at discharge. Discussed with family about surgical intervention. They are agreeable with surgery from a comfort measure. Their concern is that rehabilitation gain will be minimal and slow due to her dementia. Code status discussed. Family reiterated Do Not Resuscitate, which is in concordance with [place] documentation. Care to return to Dr Brunson at time of discharge from [facility] 11/06/17 OP Day: ORIF with cephalomedullary device of left three-part intertrochanteric hip fracture. Tolerated surgery well. Will continue with IVF, decreasing as oral drive improves. Continue Harvey to DD as urine output was decreased overnight. Try to remove in near future. Post op pain control. Continue to work for bowel function. PT/OT as able - suspect with patients dementia gains will be slow. CM making care plans for return to [facility] for recovery once she is medically stable.
[2017-11-07] MEDS: NS 1,000 ML IV SCH (06:42)
[2017-11-07] MEDS ORDERED: FUROSEMIDE 20 MG/2 ML INJECTION IVP ONE (07:46)
[2017-11-07] MEDS: SERTRALINE 100 MG TABLET PO SCH (09:19)
[2017-11-07] MEDS: LEVOTHYROXINE 50 MCG TABLET PO SCH (09:19)
[2017-11-07] MEDS: POLYETHYL GLYCOL 3350 17gm PACKET PO SCH (09:19)
[2017-11-07] MEDS: CALCIUM 600 + VIT D 400 TABLET PO SCH ×2 (09:19→20:30)
[2017-11-07] MEDS: SENNA + DOCUSATE TABLET PO SCH ×2 (09:19→20:30)
[2017-11-07] MEDS: FAMOTIDINE 20 MG TABLET PO SCH (09:19)
--- NOTE | 2017-11-07 13:21 | Progress Note ---
- Date 11/07/17 Subjective: Minimally responsive this morning. Hb resulted at 5.7, receiving 1st unit of PRBC now. Mildly elevated temp with PRBC. Not answering questions for me. Nonverbal at baseline per report. Objective Vital signs: Temperature 99.6 F 11/07/17 11:21 Pulse Rate 89 11/07/17 11:21 Respiratory Rate 18 11/07/17 11:21 Blood Pressure 112/69 11/07/17 11:21 Pulse Oximetry 95 11/07/17 11:21 Rhythm: Sinus Tachycardia Height/Weight/BMI: Height 1.57 m Weight 62.6 kg Body Mass Index 22.1 - Constitutional Present: no acute distress, somnolent - Routine HEENT Exam Head: Present: normocephalic ENT: Present: mucous membranes moist, oropharynx clear - Routine Respiratory Exam Present: decreased breath sounds. Absent: wheezes, crackles - Routine Cardiovascular Exam Present: tachycardia - Routine Abdominal Exam Present: soft, non distended, non tender - Routine Extremities Exam Present: no edema - Routine Skin Exam Present: dry, warm. Absent: rash - Routine Psychiatric Exam Present: unable to assess Results - Labs CBC & Chem 7: 11/07/17 04:23 11/07/17 04:23 Assessment and Plan Assessment and Plan: Assessment Left intertrochanteric femur fracture Subdural Hematoma Mechanical fall Leukocytosis - suspect stress reaction Hyperglycemia Fracture of surgical neck of right humerus - chronic Dementia Hypothyroidism GERD Constipation COPD OA Anxiety disorder Anemia, acute blood loss + chronic disease, Hb 5.7 today (from 9.2) Hypokalemia; K 3.3 Plan Continue IVF at 50 cc/hour but will change to 1/2NS + KCL due to hypokalemia. 2 units PRBC to be given this AM with 20 mg IV lasix in between and Hb recheck this afternoon. Continue off all anticoagulation. Continue granger to DD today, will plan to remove tomorrow. Follow pending Vit D level. If ongoing fevers will reculture urine and obtain CXR, suspect mild elevation in temp due to PRBC. Keep NPO acutely until more able to awaken and take nutrition. PT/OT as able - suspect with patients dementia gains will be slow and she is poorly responsive today. CM making care plans for [facility] for [facility] once she is medically stable. Recheck renal panel, CBC, Mg in AM for surveillance. Case discussed with bedside RN. DVT Prophylaxis: SCD's Resuscitation Status: Do Not Resuscitate - Physician Narrative Narrative: Date: 11/07/17 Time: 1315 Hospital Course Summary Disclaimer: The visit summary below is not to be considered part of the above Progress Note. Hospital Course: 11/05/17 Admit patient to inpatient status at [facility] [place] the care of Dr Baptiste. Left intertrochanteric hip fracture requiring surgical repair. Anticipate greater than 2 midnights of care needed. Consult with Dr Chambers for orthopedic evaluation and surgical recommendations for hip fracture. Pain control with MS. Will continue with patient home acetaminophen and tramadol as needed. Perchlorperazine and ondansetron as needed for nausea. Bed rest preoperatively to minimize pain. Work to mobilize patient with PT/OT post op. Granger to dependent drainage to monitor urine output and minimized need to get up preop. Work to remove Granger as soon as possible post op. IS for pulmonary toilet. Start routine Senna Plus BID to help bowel function. Continue pt's routine Miralax and prn medications. Patient has been typed and screened in anticipation of potential blood loss from her injury/surgery. Check Vitamin D level secondary to fragility fracture. Start calcium with vit D 600 BID. With patient's advanced dementia will hold on consult for metabolic bone health. NPO after midnight in anticipation of surgery tomorrow. Start NS at 75cc/hr this evening for hydration. Recheck CT brain tomorrow am to monitor subdural hematoma. Recommend against use of Lovenox in post op setting due to SDH. Repeat CBC in am due to leukocytosis and to monitor hemoglobin. Will recheck BMP in am due to IVF use. Home medications will continue. Involve case management to help with discharge disposition - anticipate return to [facility] for care at discharge. Discussed with family about surgical intervention. They are agreeable with surgery from a comfort measure. Their concern is that rehabilitation gain will be minimal and slow due to her dementia. Code status discussed. Family reiterated Do Not Resuscitate, which is in concordance with [place] documentation. Care to return to Dr Brunson at time of discharge from [facility]. 11/06/17 OP Day: ORIF with cephalomedullary device of left three-part intertrochanteric hip fracture. Tolerated surgery well. Will continue with IVF, decreasing as oral drive improves. Continue Granger to DD as urine output was decreased overnight. Try to remove in near future. Post op pain control. Continue to work for bowel function. PT/OT as able - suspect with patients dementia gains will be slow. CM making care plans for return to [facility] for recovery once she is medically stable. 11/07/17 Continue IVF at 50 cc/hour but will change to 1/2NS + KCL due to hypokalemia. 2 units PRBC to be given this AM with 20 mg IV lasix in between and Hb recheck this afternoon. Continue off all anticoagulation. Continue granger to DD today, will plan to remove tomorrow. Follow pending Vit D level. If ongoing fevers will reculture urine and obtain CXR, suspect mild elevation in temp due to PRBC. Keep NPO acutely until more able to awaken and take nutrition. PT/OT as able - suspect with patients dementia gains will be slow and she is poorly responsive today. CM making care plans for return to [facility] for recovery once she is medically stable. Recheck renal panel, CBC, Mg in AM for surveillance.
[2017-11-07] MEDS: 1/2 NS with KCL 20mEq 1,000 ML IV SCH (14:25)
[2017-11-07] MEDS: MORPHINE SULFATE 4mg INJECTION IVP PRN ×2 (16:17→21:37)
[2017-11-07] MEDS: MELATONIN 5 MG TABLET PO SCH (20:30)
[2017-11-07] MEDS: OLANZapine 2.5 MG TABLET PO SCH (20:30)
[2017-11-07] MEDS: MELOXICAM 7.5 MG TABLET PO SCH (20:30)
[2017-11-08] MEDS: NOZIN NASAL SWAB NAS SCH ×3 (04:40→20:27)
[2017-11-08] MEDS: REFRESH CELLUVISC 1% Eye Drops 0.4ml EACH EYE SCH ×3 (06:21→18:04)
[2017-11-08] MEDS: 1/2 NS with KCL 20mEq 1,000 ML IV SCH (06:21)
[2017-11-08] MEDS: LEVOTHYROXINE 50 MCG TABLET PO SCH ×2 (08:12→10:16)
[2017-11-08] MEDS: POLYETHYL GLYCOL 3350 17gm PACKET PO SCH (08:12)
[2017-11-08] MEDS: SERTRALINE 100 MG TABLET PO SCH ×2 (08:12→10:16)
[2017-11-08] MEDS: SENNA + DOCUSATE TABLET PO SCH ×3 (08:12→20:26)
[2017-11-08] MEDS: FAMOTIDINE 20 MG TABLET PO SCH ×2 (08:12→10:16)
[2017-11-08] MEDS: CALCIUM 600 + VIT D 400 TABLET PO SCH ×3 (08:12→20:26)
--- NOTE | 2017-11-08 09:18 | XRay Report ---
Indication: TEMPERATURE PROCEDURE: XR chest 1V: Encounter: Initial Comparison: November 05, 2017 Findings: Lungs are stable and grossly clear. No pleural effusion or pneumothorax. Heart size and mediastinal contours are stable. Pulmonary vascularity is unchanged. Right IJ port. Impression: Stable chest without acute cardiopulmonary disease. There is a preliminary report by virtual radiologic. .
[2017-11-08] MEDS: POTASSIUM CHLORIDE PREMIX 10 MEQ/100 ML BAG IV SCH ×4 (10:02→13:28)
--- NOTE | 2017-11-08 13:12 | Progress Note ---
- Date 11/08/17 Subjective: Awake and alert today, answers some questions for me. Willing to try some food this morning. No acute events overnight, slept well. Objective Vital signs: Temperature 98.9 F 11/08/17 11:12 Pulse Rate 102 H 11/08/17 11:12 Respiratory Rate 16 11/08/17 11:12 Blood Pressure 118/61 11/08/17 11:12 Pulse Oximetry 96 11/08/17 11:12 Rhythm: Normal Sinus Rhythm Height/Weight/BMI: Height 1.57 m Weight 63 kg Body Mass Index 22.1 - Constitutional Present: no acute distress, well nourished, well developed - Routine HEENT Exam Head: Present: normocephalic, atraumatic Eye: Present: PERRL ENT: Present: mucous membranes moist, oropharynx clear - Routine Respiratory Exam Present: CTA bilaterally. Absent: rales, crackles - Routine Cardiovascular Exam Present: RRR - Routine Abdominal Exam Present: soft, non distended, non tender - Routine Extremities Exam Present: no edema, pulses intact - Routine Skin Exam Present: dry, warm. Absent: rash - Routine Neurological Exam Present: alert, normal speech Results - Labs CBC & Chem 7: 11/08/17 04:29 11/08/17 04:29 - Impressions Date of Exam: 11/07/17 Ordering Provider: Corinna Osman Type of Exam(s): XR chest 1V Reason for Exam(s): TEMPERATURE Indication: TEMPERATURE PROCEDURE: XR chest 1V: Encounter: Initial Comparison: November 05, 2017 Findings: Lungs are stable and grossly clear. No pleural effusion or pneumothorax. Heart size and mediastinal contours are stable. Pulmonary vascularity is unchanged. Right IJ port. Impression: Stable chest without acute cardiopulmonary disease. Assessment and Plan Assessment and Plan: Assessment Left intertrochanteric femur fracture Subdural Hematoma Mechanical fall Leukocytosis - suspect stress reaction Hyperglycemia Fracture of surgical neck of right humerus - chronic Dementia Hypothyroidism GERD Constipation COPD OA Anxiety disorder Anemia, acute blood loss + chronic disease, Hb 5.7 on 11/07, received 2 units PRBC Hypokalemia; K 3.1 despite IV repletion Vitamin D deficiency Plan Hold further maintenance fluids Resume po meds if tolerating oral intake KCl 40 meq IV over 4 hours this morning Continue off all anticoagulation. Discontinue granger today Start cholecalciferol 2000 units daily for replacement PT/OT as able - suspect with patients dementia gains will be slow but she is more responsive today CM making care plans for return to [facility] for recovery once she is medically stable. Recheck renal panel, CBC, in AM for surveillance. Case discussed with bedside RN. DVT Prophylaxis: SCD's Resuscitation Status: Do Not Resuscitate - Physician Narrative Narrative: Date: 11/08/17 Time: 1307 Hospital Course Summary Disclaimer: The visit summary below is not to be considered part of the above Progress Note. Hospital Course: 11/05/17 Admit patient to inpatient status at [facility] [place] the care of Dr Baptiste. Left intertrochanteric hip fracture requiring surgical repair. Anticipate greater than 2 midnights of care needed. Consult with Dr Chambers for orthopedic evaluation and surgical recommendations for hip fracture. Pain control with MS. Will continue with patient home acetaminophen and tramadol as needed. Perchlorperazine and ondansetron as needed for nausea. Bed rest preoperatively to minimize pain. Work to mobilize patient with PT/OT post op. Granger to dependent drainage to monitor urine output and minimized need to get up preop. Work to remove Granger as soon as possible post op. IS for pulmonary toilet. Start routine Senna Plus BID to help bowel function. Continue pt's routine Miralax and prn medications. Patient has been typed and screened in anticipation of potential blood loss from her injury/surgery. Check Vitamin D level secondary to fragility fracture. Start calcium with vit D 600 BID. With patient's advanced dementia will hold on consult for metabolic bone health. NPO after midnight in anticipation of surgery tomorrow. Start NS at 75cc/hr this evening for hydration. Recheck CT brain tomorrow am to monitor subdural hematoma. Recommend against use of Lovenox in post op setting due to SDH. Repeat CBC in am due to leukocytosis and to monitor hemoglobin. Will recheck BMP in am due to IVF use. Home medications will continue. Involve case management to help with discharge disposition - anticipate return to [facility] for care at discharge. Discussed with family about surgical intervention. They are agreeable with surgery from a comfort measure. Their concern is that rehabilitation gain will be minimal and slow due to her dementia. Code status discussed. Family reiterated Do Not Resuscitate, which is in concordance with [place] documentation. Care to return to Dr Brunson at time of discharge from [facility] 11/06/17 OP Day: ORIF with cephalomedullary device of left three-part intertrochanteric hip fracture. Tolerated surgery well. Will continue with IVF, decreasing as oral drive improves. Continue Granger to DD as urine output was decreased overnight. Try to remove in near future. Post op pain control. Continue to work for bowel function. PT/OT as able - suspect with patients dementia gains will be slow. CM making care plans for return to [facility] for recovery once she is medically stable. 11/07/17 Continue IVF at 50 cc/hour but will change to 1/2NS + KCL due to hypokalemia. 2 units PRBC to be given this AM with 20 mg IV lasix in between and Hb recheck this afternoon. Continue off all anticoagulation. Continue granger to DD today, will plan to remove tomorrow. Follow pending Vit D level. If ongoing fevers will reculture urine and obtain CXR, suspect mild elevation in temp due to PRBC. Keep NPO acutely until more able to awaken and take nutrition. PT/OT as able - suspect with patients dementia gains will be slow and she is poorly responsive today. CM making care plans for return to [facility] for recovery once she is medically stable. Recheck renal panel, CBC, Mg in AM for surveillance. 11/08/17 Hold further maintenance fluids Resume po meds if tolerating oral intake KCl 40 meq IV over 4 hours this morning Continue off all anticoagulation. Discontinue granger today Start cholecalciferol 2000 units daily for replacement PT/OT as able - suspect with patients dementia gains will be slow but she is more responsive today CM making care plans for return to [facility] for recovery once she is medically stable. Recheck renal panel, CBC, in AM for surveillance.
--- NOTE | 2017-11-08 16:21 | Orthopedic Progress Note ---
Date: Date: 11/08/17 Time: 1617 Subjective/Severity of Illness: Mara is resting comfortably. She had a unit of PRBC's yesterday. Hgb is improved to 8.5. VVS, afebrile, renal function is stable. Has known subdural hematoma. She does not respond much for me. K is 3.1 despite hospitalist replacement; they continue to address this. Orthopedic Exam Vital signs: Temperature 97.9 F 11/07/17 04:00 Pulse Rate 97 11/07/17 04:00 Respiratory Rate 16 11/07/17 04:00 Blood Pressure 113/65 11/07/17 04:00 Pulse Oximetry 96 11/07/17 04:00 - Constitutional General Appearance: Present: no acute distress, somnolent - Respiratory Exam Present: non-labored - Cardiovascular Exam Present: pedal pulses intact - Abdominal Exam Present: soft - Extremities Exam Present: no edema, pulses intact - Dressing Dressing: intact, bloody drainage (non saturated. Stable from yesterday.) - Integumentary Exam Present: pink, warm, dry - Neurological Exam Present: intact to light touch, other (downgoing Babinski) - Labs Result Diagrams: 11/08/17 04:29 11/08/17 04:29 Abnormal lab results 11/07/17 11/08/17 11/08/17 Range/Units 18:20 04:29 04:29 RBC 2.69 L (4.00-5.20) M/MM3 Hgb 8.5 L (12-16) GM/DL Hct 25.4 L D (36-46) % RDW Std Deviation 54.5 H (36.9-50.2) FL Plt Count 99 L (130-400) T/MM3 Neut % (Auto) 82.4 H (33-66) % Lymph % (Auto) 9.2 L (23-45) % Neut # (Auto) 8.0 H (1.8-7.7) T/MM3 Lymph # (Auto) 0.9 L (1-4.8) T/MM3 INR (0.92-1.18) Potassium 3.1 L (3.6-5) MEQ/L Creatinine 0.4 L (0.7-1.2) mg/dL BUN/Creatinine Ratio 33 H (6-26) RATIO Calcium 7.9 L (8.4-10.2) MG/DL Phosphorus 2.3 L (2.5-4.5) MG/DL Albumin 2.6 L (3.5-5.0) g/dL Urine Ketones Trace A (NEGATIVE) Urine Occult Blood 1+ A (NEGATIVE) Urine Bacteria 1+ H (NEGATIVE) 11/08/17 Range/Units 09:07 RBC (4.00-5.20) M/MM3 Hgb (12-16) GM/DL Hct (36-46) % RDW Std Deviation (36.9-50.2) FL Plt Count (130-400) T/MM3 Neut % (Auto) (33-66) % Lymph % (Auto) (23-45) % Neut # (Auto) (1.8-7.7) T/MM3 Lymph # (Auto) (1-4.8) T/MM3 INR 1.19 H (0.92-1.18) Potassium (3.6-5) MEQ/L Creatinine (0.7-1.2) mg/dL BUN/Creatinine Ratio (6-26) RATIO Calcium (8.4-10.2) MG/DL Phosphorus (2.5-4.5) MG/DL Albumin (3.5-5.0) g/dL Urine Ketones (NEGATIVE) Urine Occult Blood (NEGATIVE) Urine Bacteria (NEGATIVE) H & H 11/06/17 11/07/17 11/07/17 Range/Units 04:24 04:23 14:24 Hgb 9.2 L D 5.7 L* D 9.5 L D (12-16) GM/DL Hct 28.8 L D 17.9 L* D (36-46) % 11/08/17 Range/Units 04:29 Hgb 8.5 L (12-16) GM/DL Hct 25.4 L D (36-46) % Coagulation 11/08/17 Range/Units 09:07 INR 1.19 H (0.92-1.18) Orthopedic Assessment and Plan (1) Intertrochanteric fracture of left hip Status: Acute Qualifiers: Encounter type: initial encounter Fracture type: closed Fracture alignment: displaced Qualified Code(s): S72.142A - Displaced intertrochanteric fracture of left femur, initial encounter for closed fracture Assessment and Plan: s/p left long IM nail for IT fracture by Dr. Chambers on 11/06/17 PT/OT for mobilization once able in view of anemia, and comorbid conditions No anticoagulation presently due to subdural hematoma; will continue with SCD's and appreciate hospitalist input on this matter. (2) Fracture of surgical neck of right humerus Status: Chronic Qualifiers: Encounter type: subsequent encounter Fracture type: closed Fracture morphology: unspecified fracture morphology Fracture alignment: displaced Fracture healing: with routine healing Qualified Code(s): S42.211D - Unspecified displaced fracture of surgical neck of right humerus, subsequent encounter for fracture with routine healing Assessment and Plan: continue with sling for comfort; non operative care. (3) Anemia Status: Acute Assessment and Plan: decision for transfusion as per hospitalist. Hospital Course Summary Disclaimer: The visit summary below is not to be considered part of the above Progress Note. Hospital Course: 11/05/17 Admit patient to inpatient status at [facility] under the care of Dr Baptiste. Left intertrochanteric hip fracture requiring surgical repair. Anticipate greater than 2 midnights of care needed. Consult with Dr Chambers for orthopedic evaluation and surgical recommendations for hip fracture. Pain control with MS. Will continue with patient home acetaminophen and tramadol as needed. Perchlorperazine and ondansetron as needed for nausea. Bed rest preoperatively to minimize pain. Work to mobilize patient with PT/OT post op. Granger to dependent drainage to monitor urine output and minimized need to get up preop. Work to remove Granger as soon as possible post op. IS for pulmonary toilet. Start routine Senna Plus BID to help bowel function. Continue pt's routine Miralax and prn medications. Patient has been typed and screened in anticipation of potential blood loss from her injury/surgery. Check Vitamin D level secondary to fragility fracture. Start calcium with vit D 600 BID. With patient's advanced dementia will hold on consult for metabolic bone health. NPO after midnight in anticipation of surgery tomorrow. Start NS at 75cc/hr this evening for hydration. Recheck CT brain tomorrow am to monitor subdural hematoma. Recommend against use of Lovenox in post op setting due to SDH. Repeat CBC in am due to leukocytosis and to monitor hemoglobin. Will recheck BMP in am due to IVF use. Home medications will continue. Involve case management to help with discharge disposition - anticipate return to [facility] for care at discharge. Discussed with family about surgical intervention. They are agreeable with surgery from a comfort measure. Their concern is that rehabilitation gain will be minimal and slow due to her dementia. Code status discussed. Family reiterated Do Not Resuscitate, which is in concordance with [place] documentation. Care to return to Dr Brunson at time of discharge from [facility]. 11/06/17 OP Day: ORIF with cephalomedullary device of left three-part intertrochanteric hip fracture. Tolerated surgery well. Will continue with IVF, decreasing as oral drive improves. Continue Granger to DD as urine output was decreased overnight. Try to remove in near future. Post op pain control. Continue to work for bowel function. PT/OT as able - suspect with patients dementia gains will be slow. CM making care plans for return to [facility] for recovery once she is medically stable. 11/07/17 Continue IVF at 50 cc/hour but will change to 1/2NS + KCL due to hypokalemia. 2 units PRBC to be given this AM with 20 mg IV lasix in between and Hb recheck this afternoon. Continue off all anticoagulation. Continue granger to DD today, will plan to remove tomorrow. Follow pending Vit D level. If ongoing fevers will reculture urine and obtain CXR, suspect mild elevation in temp due to PRBC. Keep NPO acutely until more able to awaken and take nutrition. PT/OT as able - suspect with patients dementia gains will be slow and she is poorly responsive today. CM making care plans for return to [facility] for recovery once she is medically stable. Recheck renal panel, CBC, Mg in AM for surveillance. 11/08/17 Hold further maintenance fluids Resume po meds if tolerating oral intake KCl 40 meq IV over 4 hours this morning Continue off all anticoagulation. Discontinue granger today Start cholecalciferol 2000 units daily for replacement PT/OT as able - suspect with patients dementia gains will be slow but she is more responsive today CM making care plans for return to [facility] for recovery once she is medically stable. Recheck renal panel, CBC, in AM for surveillance.
[2017-11-08] MEDS: MELATONIN 5 MG TABLET PO SCH (20:26)
[2017-11-08] MEDS: MELOXICAM 7.5 MG TABLET PO SCH (20:26)
[2017-11-08] MEDS: OLANZapine 2.5 MG TABLET PO SCH (20:27)
[2017-11-09] MEDS: REFRESH CELLUVISC 1% Eye Drops 0.4ml EACH EYE SCH ×6 (00:17→23:51)
[2017-11-09] MEDS: NOZIN NASAL SWAB NAS SCH ×4 (04:50→21:27)
--- NOTE | 2017-11-09 08:04 | Orthopedic Progress Note ---
Date: Date: 11/09/17 Time: 08 Subjective/Severity of Illness: Mara was seen on morning rounds. She is alert but doesn't communicate with me. Does not appear in any acute distress. Hgb down from 8.5 to 7.7 Orthopedic Exam Vital signs: Temperature 97.9 F 11/07/17 04:00 Pulse Rate 97 11/07/17 04:00 Respiratory Rate 16 11/07/17 04:00 Blood Pressure 113/65 11/07/17 04:00 Pulse Oximetry 96 11/07/17 04:00 - Constitutional General Appearance: Present: alert, no acute distress - Respiratory Exam Present: non-labored - Cardiovascular Exam Present: pedal pulses intact - Extremities Exam Present: pulses intact. Absent: calf tenderness - Dressing Dressing: intact, bloody drainage (minimal amount.) - Integumentary Exam Present: pink, warm, dry - Neurological Exam Present: intact to light touch, other (downgoing Babinski) - Psychiatric Exam Present: alert - Labs Result Diagrams: 11/09/17 03:36 11/09/17 03:36 Abnormal lab results 11/08/17 11/09/17 11/09/17 Range/Units 09:07 03:36 03:36 RBC 2.42 L (4.00-5.20) M/MM3 Hgb 7.7 L (12-16) GM/DL Hct 23.1 L (36-46) % RDW Std Deviation 53.2 H (36.9-50.2) FL Plt Count 98 L (130-400) T/MM3 INR 1.19 H (0.92-1.18) Potassium 3.2 L (3.6-5) MEQ/L Chloride 109 H (98-107) MEQ/L Creatinine 0.4 L (0.7-1.2) mg/dL BUN/Creatinine Ratio 40 H (6-26) RATIO Calcium 7.9 L (8.4-10.2) MG/DL Phosphorus 1.8 L (2.5-4.5) MG/DL Albumin 2.4 L (3.5-5.0) g/dL H & H 11/06/17 11/07/17 11/07/17 Range/Units 04:24 04:23 14:24 Hgb 9.2 L D 5.7 L* D 9.5 L D (12-16) GM/DL Hct 28.8 L D 17.9 L* D (36-46) % 11/08/17 11/09/17 Range/Units 04:29 03:36 Hgb 8.5 L 7.7 L (12-16) GM/DL Hct 25.4 L D 23.1 L (36-46) % Coagulation 11/08/17 Range/Units 09:07 INR 1.19 H (0.92-1.18) Orthopedic Assessment and Plan (1) Intertrochanteric fracture of left hip Status: Acute Qualifiers: Encounter type: initial encounter Fracture type: closed Fracture alignment: displaced Qualified Code(s): S72.142A - Displaced intertrochanteric fracture of left femur, initial encounter for closed fracture Assessment and Plan: s/p left long IM nail for IT fracture by Dr. Chambers on 11/06/17 PT/OT for mobilization, WBAT. No anticoagulation presently due to subdural hematoma; will continue with SCD's. F/U in ortho clinic scheduled. (2) Fracture of surgical neck of right humerus Status: Chronic Qualifiers: Encounter type: subsequent encounter Fracture type: closed Fracture morphology: unspecified fracture morphology Fracture alignment: displaced Fracture healing: with routine healing Qualified Code(s): S42.211D - Unspecified displaced fracture of surgical neck of right humerus, subsequent encounter for fracture with routine healing Assessment and Plan: continue with sling for comfort; non operative care. (3) Anemia Status: Acute Assessment and Plan: decision for transfusion as per hospitalist. Hospital Course Summary Disclaimer: The visit summary below is not to be considered part of the above Progress Note. Hospital Course: 11/05/17 Admit patient to inpatient status at [facility] under the care of Dr Baptiste. Left intertrochanteric hip fracture requiring surgical repair. Anticipate greater than 2 midnights of care needed. Consult with Dr Chambers for orthopedic evaluation and surgical recommendations for hip fracture. Pain control with MS. Will continue with patient home acetaminophen and tramadol as needed. Perchlorperazine and ondansetron as needed for nausea. Bed rest preoperatively to minimize pain. Work to mobilize patient with PT/OT post op. Granger to dependent drainage to monitor urine output and minimized need to get up preop. Work to remove Granger as soon as possible post op. IS for pulmonary toilet. Start routine Senna Plus BID to help bowel function. Continue pt's routine Miralax and prn medications. Patient has been typed and screened in anticipation of potential blood loss from her injury/surgery. Check Vitamin D level secondary to fragility fracture. Start calcium with vit D 600 BID. With patient's advanced dementia will hold on consult for metabolic bone health. NPO after midnight in anticipation of surgery tomorrow. Start NS at 75cc/hr this evening for hydration. Recheck CT brain tomorrow am to monitor subdural hematoma. Recommend against use of Lovenox in post op setting due to SDH. Repeat CBC in am due to leukocytosis and to monitor hemoglobin. Will recheck BMP in am due to IVF use. Home medications will continue. Involve case management to help with discharge disposition - anticipate return to [facility] for care at discharge. Discussed with family about surgical intervention. They are agreeable with surgery from a comfort measure. Their concern is that rehabilitation gain will be minimal and slow due to her dementia. Code status discussed. Family reiterated Do Not Resuscitate, which is in concordance with [place] documentation. Care to return to Dr Brunson at time of discharge from [facility]. 11/06/17 OP Day: ORIF with cephalomedullary device of left three-part intertrochanteric hip fracture. Tolerated surgery well. Will continue with IVF, decreasing as oral drive improves. Continue Granger to DD as urine output was decreased overnight. Try to remove in near future. Post op pain control. Continue to work for bowel function. PT/OT as able - suspect with patients dementia gains will be slow. CM making care plans for return to [facility] for recovery once she is medically stable. 11/07/17 Continue IVF at 50 cc/hour but will change to 1/2NS + KCL due to hypokalemia. 2 units PRBC to be given this AM with 20 mg IV lasix in between and Hb recheck this afternoon. Continue off all anticoagulation. Continue granger to DD today, will plan to remove tomorrow. Follow pending Vit D level. If ongoing fevers will reculture urine and obtain CXR, suspect mild elevation in temp due to PRBC. Keep NPO acutely until more able to awaken and take nutrition. PT/OT as able - suspect with patients dementia gains will be slow and she is poorly responsive today. CM making care plans for return to [facility] for recovery once she is medically stable. Recheck renal panel, CBC, Mg in AM for surveillance. 11/08/17 Hold further maintenance fluids Resume po meds if tolerating oral intake KCl 40 meq IV over 4 hours this morning Continue off all anticoagulation. Discontinue granger today Start cholecalciferol 2000 units daily for replacement PT/OT as able - suspect with patients dementia gains will be slow but she is more responsive today CM making care plans for return to [facility] for recovery once she is medically stable. Recheck renal panel, CBC, in AM for surveillance.
[2017-11-09] MEDS: SERTRALINE 100 MG TABLET PO SCH (08:52)
[2017-11-09] MEDS: CALCIUM 600 + VIT D 400 TABLET PO SCH ×2 (08:52→20:11)
[2017-11-09] MEDS: SENNA + DOCUSATE TABLET PO SCH ×2 (08:53→20:11)
[2017-11-09] MEDS: FAMOTIDINE 20 MG TABLET PO SCH (08:53)
[2017-11-09] MEDS: LEVOTHYROXINE 50 MCG TABLET PO SCH (08:53)
[2017-11-09] MEDS: POLYETHYL GLYCOL 3350 17gm PACKET PO SCH (09:29)
[2017-11-09 11:35] VITALS: RESP 16
--- NOTE | 2017-11-09 11:53 | Progress Note ---
- Date 11/09/17 Subjective: Mara is seen this morning in follow-up. She is alert and pleasantly confused during examination. Last. She is feeling today, she replies "[place]on [place] ". She does smile and make eye contact and does not appear to be in any acute distress. She is comfortably breathing on room air. Vital signs are normal. When asked if she has pain. She states no. Chart reviewed. Objective Vital signs: Temperature 97.1 F 11/09/17 11:34 Pulse Rate 65 11/09/17 11:34 Respiratory Rate 16 11/09/17 11:34 Blood Pressure 132/66 11/09/17 11:34 Pulse Oximetry 94 11/09/17 11:34 Rhythm: Normal Sinus Rhythm Height/Weight/BMI: Height 1.57 m Weight 61.9 kg Body Mass Index 22.1 - Constitutional Present: no acute distress, well nourished, well developed - Routine HEENT Exam Eye: Present: EOMI ENT: Present: mucous membranes moist, dentition normal - Routine Respiratory Exam Present: CTA bilaterally. Absent: wheezes - Routine Cardiovascular Exam Present: RRR, S1, S2. Absent: murmur - Routine Abdominal Exam Present: soft, normoactive bowel sounds, non distended. Absent: tenderness - Routine Extremities Exam Present: normal capillary refill - Routine Skin Exam Present: intact, dry, warm - Routine Neurological Exam Present: alert, CN II-XII intact, altered mental status - Routine Lymphatic Exam Lymphatic: Absent: adenopathy - Routine Psychiatric Exam Present: unable to assess Comments: Confused Results - Labs CBC & Chem 7: 11/09/17 03:36 11/09/17 03:36 Assessment and Plan (1) Intertrochanteric fracture of left hip Current visit: Yes Status: Acute (2) Subdural hematoma Current visit: Yes Status: Acute (3) Fracture of surgical neck of right humerus Current visit: Yes Status: Chronic Assessment and Plan: Assessment Left intertrochanteric femur fracture Subdural Hematoma Mechanical fall Leukocytosis - suspect stress reaction Hyperglycemia Fracture of surgical neck of right humerus - chronic Dementia Hypothyroidism GERD Constipation COPD OA Anxiety disorder Anemia, acute blood loss + chronic disease, Hb 5.7 on 11/07, received 2 units PRBC Hypokalemia; K 3.1 despite IV repletion Vitamin D deficiency Plan Hemoglobin remains low, however, is stable at 7.7. No Anticoagulation. Continues to be mildly hypokalemic, will give oral supplementation at noon today. Tylenol available as needed for pain control Encourage work with PT and OT for ongoing strengthening CM making care plans for return to [facility] Case discussed with attending, Dr. Patten 11/09/2017-4 PM-I examined the patient independently. I reviewed this chart, the patient history, and the PARTS CHASER's/PA's documented findings as above. We discussed and formulated the assessment and plan as above with the additions below.-Dr. Patten The patient was seen this afternoon in her room. No family is currently present. When I ask her question, her answer does not pertain to the question. She appears in no distress. She is awake and watching TV lying in her bed. Chest is clear to auscultation. Cardiovascular reveals a regular rate and rhythm. Abdomen is soft and nontender. Extremities are free of edema. Impression and plan She seems to be doing okay after surgery for femur fracture. She did receive 2 units of blood for anemia. Recheck hemoglobin tomorrow. Regarding her hypokalemia, will replace orally. Regarding hypophosphatemia, will replace orally. Possible transfer back to her senior care tomorrow. - Physician Narrative Narrative: Date: 11/09/17 Time: 1150 Hospital Course Summary Disclaimer: The visit summary below is not to be considered part of the above Progress Note. Hospital Course: 11/05/17 Admit patient to inpatient status at [facility] under the care of Dr Baptiste. Left intertrochanteric hip fracture requiring surgical repair. Anticipate greater than 2 midnights of care needed. Consult with Dr Chambers for orthopedic evaluation and surgical recommendations for hip fracture. Pain control with MS. Will continue with patient home acetaminophen and tramadol as needed. Perchlorperazine and ondansetron as needed for nausea. Bed rest preoperatively to minimize pain. Work to mobilize patient with PT/OT post op. Granger to dependent drainage to monitor urine output and minimized need to get up preop. Work to remove Granger as soon as possible post op. IS for pulmonary toilet. Start routine Senna Plus BID to help bowel function. Continue pt's routine Miralax and prn medications. Patient has been typed and screened in anticipation of potential blood loss from her injury/surgery. Check Vitamin D level secondary to fragility fracture. Start calcium with vit D 600 BID. With patient's advanced dementia will hold on consult for metabolic bone health. NPO after midnight in anticipation of surgery tomorrow. Start NS at 75cc/hr this evening for hydration. Recheck CT brain tomorrow am to monitor subdural hematoma. Recommend against use of Lovenox in post op setting due to SDH. Repeat CBC in am due to leukocytosis and to monitor hemoglobin. Will recheck BMP in am due to IVF use. Home medications will continue. Involve case management to help with discharge disposition - anticipate return to [facility] for care at discharge. Discussed with family about surgical intervention. They are agreeable with surgery from a comfort measure. Their concern is that rehabilitation gain will be minimal and slow due to her dementia. Code status discussed. Family reiterated Do Not Resuscitate, which is in concordance with [place] documentation. Care to return to Dr Brunson at time of discharge from [facility]. 11/06/17 OP Day: ORIF with cephalomedullary device of left three-part intertrochanteric hip fracture. Tolerated surgery well. Will continue with IVF, decreasing as oral drive improves. Continue Granger to DD as urine output was decreased overnight. Try to remove in near future. Post op pain control. Continue to work for bowel function. PT/OT as able - suspect with patients dementia gains will be slow. CM making care plans for return to [facility] for recovery once she is medically stable. 11/07/17 Continue IVF at 50 cc/hour but will change to 1/2NS + KCL due to hypokalemia. 2 units PRBC to be given this AM with 20 mg IV lasix in between and Hb recheck this afternoon. Continue off all anticoagulation. Continue granger to DD today, will plan to remove tomorrow. Follow pending Vit D level. If ongoing fevers will reculture urine and obtain CXR, suspect mild elevation in temp due to PRBC. Keep NPO acutely until more able to awaken and take nutrition. PT/OT as able - suspect with patients dementia gains will be slow and she is poorly responsive today. CM making care plans for return to [facility] for recovery once she is medically stable. Recheck renal panel, CBC, Mg in AM for surveillance. 11/08/17 Hold further maintenance fluids Resume po meds if tolerating oral intake KCl 40 meq IV over 4 hours this morning Continue off all anticoagulation. Discontinue granger today Start cholecalciferol 2000 units daily for replacement PT/OT as able - suspect with patients dementia gains will be slow but she is more responsive today CM making care plans for return to [facility] for recovery once she is medically stable. Recheck renal panel, CBC, in AM for surveillance. 11/09/17 Hemoglobin remains low, however, is stable at 7.7. No Anticoagulation. Continues to be mildly hypokalemic, will give oral supplementation at noon today. Tylenol available as needed for pain control Encourage work with PT and OT for ongoing strengthening CM making care plans for return to [facility] Case discussed with attending, Dr. Patten
[2017-11-09] MEDS: SALINE FLUSH 10ml SYRINGE IVF PRN (12:08)
[2017-11-09] MEDS: PHOSPHORUS 250 MG TABLET PO SCH ×2 (18:01→20:11)
[2017-11-09] MEDS: MELOXICAM 7.5 MG TABLET PO SCH (20:11)
[2017-11-09] MEDS: MELATONIN 5 MG TABLET PO SCH (20:11)
[2017-11-09] MEDS: OLANZapine 2.5 MG TABLET PO SCH (20:19)
[2017-11-10] MEDS: NOZIN NASAL SWAB NAS SCH ×2 (05:25→14:31)
[2017-11-10] MEDS: REFRESH CELLUVISC 1% Eye Drops 0.4ml EACH EYE SCH ×2 (05:25→14:31)
[2017-11-10] MEDS: ACETAMINOPHEN 325 MG TABLET PO PRN ×2 (06:13→14:32)
--- NOTE | 2017-11-10 08:46 | Orthopedic Progress Note ---
Date: Date: 11/10/17 Time: 842 Subjective/Severity of Illness: Mara is lying in bed this morning, pleasant and alert. She reports some pain with movement of left hip, otherwise pain is well controlled. Denies any pain with right shoulder. Plan to discharge back to [facility] today. Denies any CP, SOA, nausea. No anticoagulation due to subdural hematoma. Orthopedic Exam Vital signs: Temperature 97.9 F 11/07/17 04:00 Pulse Rate 97 11/07/17 04:00 Respiratory Rate 16 11/07/17 04:00 Blood Pressure 113/65 11/07/17 04:00 Pulse Oximetry 96 11/07/17 04:00 - Constitutional General Appearance: Present: alert, no acute distress - Respiratory Exam Present: non-labored - Cardiovascular Exam Present: pedal pulses intact - Extremities Exam Present: normal capillary refill - Dressing Dressing: intact, bloody drainage (minimal amount.) - Detailed Upper Extremity Exam Comments: Sling in place RUE, radial pulses intact, capillary refill <2 sec. - Integumentary Exam Present: pink, warm, dry - Lymphatic Lymphatic: Present: adenopathy - Neurological Exam Present: intact to light touch - Psychiatric Exam Present: alert - Labs Result Diagrams: 11/10/17 04:20 11/10/17 04:20 Abnormal lab results 11/10/17 11/10/17 Range/Units 04:20 04:20 RBC 2.69 L (4.00-5.20) M/MM3 Hgb 8.3 L (12-16) GM/DL Hct 25.7 L D (36-46) % RDW Std Deviation 51.9 H (36.9-50.2) FL Neut % (Auto) 67.0 H (33-66) % Lymph % (Auto) 20.8 L (23-45) % Holmes % (Auto) 9.8 H (0-9.0) % Potassium 3.5 L (3.6-5) MEQ/L Creatinine 0.4 L (0.7-1.2) mg/dL BUN/Creatinine Ratio 28 H (6-26) RATIO H & H 11/06/17 11/07/17 11/07/17 Range/Units 04:24 04:23 14:24 Hgb 9.2 L D 5.7 L* D 9.5 L D (12-16) GM/DL Hct 28.8 L D 17.9 L* D (36-46) % 11/08/17 11/09/17 11/10/17 Range/Units 04:29 03:36 04:20 Hgb 8.5 L 7.7 L 8.3 L (12-16) GM/DL Hct 25.4 L D 23.1 L 25.7 L D (36-46) % Coagulation 11/08/17 Range/Units 09:07 INR 1.19 H (0.92-1.18) Orthopedic Assessment and Plan (1) Intertrochanteric fracture of left hip Status: Acute Qualifiers: Encounter type: initial encounter Fracture type: closed Fracture alignment: displaced Qualified Code(s): S72.142A - Displaced intertrochanteric fracture of left femur, initial encounter for closed fracture Assessment and Plan: s/p left long IM nail for IT fracture by Dr. Chambers on 11/06/17 PT/OT for mobilization, WBAT. No anticoagulation presently due to subdural hematoma; will continue with SCD's. F/U in ortho clinic scheduled. (2) Fracture of surgical neck of right humerus Status: Chronic Qualifiers: Encounter type: subsequent encounter Fracture type: closed Fracture morphology: unspecified fracture morphology Fracture alignment: displaced Fracture healing: with routine healing Qualified Code(s): S42.211D - Unspecified displaced fracture of surgical neck of right humerus, subsequent encounter for fracture with routine healing Assessment and Plan: continue with sling for comfort; non operative care. (3) Anemia Status: Acute Assessment and Plan: decision for transfusion as per hospitalist. Hospital Course Summary Disclaimer: The visit summary below is not to be considered part of the above Progress Note. Hospital Course: 11/05/17 Admit patient to inpatient status at [facility] under the care of Dr Baptiste. Left intertrochanteric hip fracture requiring surgical repair. Anticipate greater than 2 midnights of care needed. Consult with Dr Chambers for orthopedic evaluation and surgical recommendations for hip fracture. Pain control with MS. Will continue with patient home acetaminophen and tramadol as needed. Perchlorperazine and ondansetron as needed for nausea. Bed rest preoperatively to minimize pain. Work to mobilize patient with PT/OT post op. Granger to dependent drainage to monitor urine output and minimized need to get up preop. Work to remove Granger as soon as possible post op. IS for pulmonary toilet. Start routine Senna Plus BID to help bowel function. Continue pt's routine Miralax and prn medications. Patient has been typed and screened in anticipation of potential blood loss from her injury/surgery. Check Vitamin D level secondary to fragility fracture. Start calcium with vit D 600 BID. With patient's advanced dementia will hold on consult for metabolic bone health. NPO after midnight in anticipation of surgery tomorrow. Start NS at 75cc/hr this evening for hydration. Recheck CT brain tomorrow am to monitor subdural hematoma. Recommend against use of Lovenox in post op setting due to SDH. Repeat CBC in am due to leukocytosis and to monitor hemoglobin. Will recheck BMP in am due to IVF use. Home medications will continue. Involve case management to help with discharge disposition - anticipate return to [facility] for care at discharge. Discussed with family about surgical intervention. They are agreeable with surgery from a comfort measure. Their concern is that rehabilitation gain will be minimal and slow due to her dementia. Code status discussed. Family reiterated Do Not Resuscitate, which is in concordance with [place] documentation. Care to return to Dr Brunson at time of discharge from [facility]. 11/06/17 OP Day: ORIF with cephalomedullary device of left three-part intertrochanteric hip fracture. Tolerated surgery well. Will continue with IVF, decreasing as oral drive improves. Continue Granger to DD as urine output was decreased overnight. Try to remove in near future. Post op pain control. Continue to work for bowel function. PT/OT as able - suspect with patients dementia gains will be slow. CM making care plans for return to [facility] for recovery once she is medically stable. 11/07/17 Continue IVF at 50 cc/hour but will change to 1/2NS + KCL due to hypokalemia. 2 units PRBC to be given this AM with 20 mg IV lasix in between and Hb recheck this afternoon. Continue off all anticoagulation. Continue granger to DD today, will plan to remove tomorrow. Follow pending Vit D level. If ongoing fevers will reculture urine and obtain CXR, suspect mild elevation in temp due to PRBC. Keep NPO acutely until more able to awaken and take nutrition. PT/OT as able - suspect with patients dementia gains will be slow and she is poorly responsive today. CM making care plans for return to [facility] for recovery once she is medically stable. Recheck renal panel, CBC, Mg in AM for surveillance. 11/08/17 Hold further maintenance fluids Resume po meds if tolerating oral intake KCl 40 meq IV over 4 hours this morning Continue off all anticoagulation. Discontinue granger today Start cholecalciferol 2000 units daily for replacement PT/OT as able - suspect with patients dementia gains will be slow but she is more responsive today CM making care plans for return to [facility] for recovery once she is medically stable. Recheck renal panel, CBC, in AM for surveillance. 11/09/17 Hemoglobin remains low, however, is stable at 7.7. No Anticoagulation. Continues to be mildly hypokalemic, will give oral supplementation at noon today. Tylenol available as needed for pain control Encourage work with PT and OT for ongoing strengthening CM making care plans for return to [facility] Case discussed with attending, Dr. Patten
[2017-11-10] MEDS: CALCIUM 600 + VIT D 400 TABLET PO SCH (09:13)
[2017-11-10] MEDS: PHOSPHORUS 250 MG TABLET PO SCH ×2 (09:13→14:31)
[2017-11-10] MEDS: LEVOTHYROXINE 50 MCG TABLET PO SCH (09:14)
[2017-11-10] MEDS: SERTRALINE 100 MG TABLET PO SCH (09:14)
[2017-11-10] MEDS: POLYETHYL GLYCOL 3350 17gm PACKET PO SCH (09:14)
[2017-11-10] MEDS: SENNA + DOCUSATE TABLET PO SCH (09:14)
[2017-11-10] MEDS: FAMOTIDINE 20 MG TABLET PO SCH (09:14)
--- NOTE | 2017-11-10 10:37 | Extended Care Facility Orders ---
<Aaliyah Ayers V - Last Filed: 11/10/17 10:37> Admission Orders Admit to:: Shelter Allergies/Adverse Reactions: Allergies No Known Drug Allergies Allergy (Unknown, Verified 11/05/17 15:53) Admitting Diagnosis: L Intertrochanteric Femur Fracture Admitting Physician: Cynthia Patten MD Attending Physician: Cynthia Patten MD Code Status: Do Not Resuscitate Anticiapted Length of Stay: 30 days or less Rehab Potential: fair Rehab Prognosis: fair May use Facility Protocol or Standing Orders: Yes May have flu vaccine: Yes Evaluations/Treatment: PT, OT Shelter Certification: I certify that SNF services are required to be given on an Inpatient basis because of the patients need for chcf care on a continuing basis for the condition(s) for which he/she received inpatient hospital services prior to his/her transfer to the SNF. SNF inpatient care is necessary for the following reasons Indication for Shelter: Other (PT,OT) - Additional Information In Event of Arrest: Do Not Start CPR Referrals: Remi Del Rio PA [Physician Enterprise Resource Analyst] - 11/25/17 10:30 am Audra Brunson MD [Primary Care Provider] - (follow up apt in 1 week) <Cynthia Patten - Last Filed: 11/10/17 11:41> Admission Orders Admitting Diagnosis: L Intertrochanteric Femur Fracture Admitting Physician: Cynthia Patten MD Attending Physician: Cynthia Patten MD Code Status: Do Not Resuscitate Shelter Certification: I certify that SNF services are required to be given on an Inpatient basis because of the patients need for chcf care on a continuing basis for the condition(s) for which he/she received inpatient hospital services prior to his/her transfer to the SNF. SNF inpatient care is necessary for the following reasons - Additional Information Laboratory/Radiology: cbc and renal panel on 11/13/2017
--- NOTE | 2017-11-10 10:42 | Discharge Summary ---
Discharge Information Date of admission: 11/05/17 17:28 Anticipated date of discharge: 11/10/17 Attending Physician: Cynthia Patten MD Primary care physician: Audra Brunson MD Consults: Dr Chambers- Orthopedics - Discharge Diagnosis (1) Intertrochanteric fracture of left hip Status: Acute (2) Subdural hematoma Status: Acute (3) Fracture of surgical neck of right humerus Status: Chronic Left intertrochanteric femur fracture Subdural Hematoma Mechanical fall Leukocytosis - suspect stress reaction Hyperglycemia Fracture of surgical neck of right humerus - chronic Dementia Hypothyroidism GERD Constipation COPD OA Anxiety disorder Anemia, acute blood loss + chronic disease, Hb 5.7 on 11/07, received 2 units PRBC -hemoglobin is 8.3 on 11/10/2017 Hypokalemia; improved-potassium is 3.5 on discharge Vitamin D deficiency - Procedures Procedures: 11/06/17-Open reduction internal fixation with cephalomedullary device of left three-part intertrochanteric hip fracture. Dr. Chambers - Laboratory Labs: 11/10/17 04:20 11/10/17 04:20 - Microbiology None - Radiology Radiology: 11/05/17- chest x-ray- Impression:1. Right humeral head fracture. 2. No acute cardiopulmonary disease. CT scan of the head- IMPRESSION: Small acute left frontal subdural hematoma. Right shoulder [id number]: Closed posttraumatic humeral head and surgical neck fracture. 11/06/17 CT head-Stable appearance of the small left frontal subdural hematoma. 11/07/17- chest [id number] chest without evidence of acute cardiopulmonary disease - Pathology None History of Present Illness HPI: Mara Boland is a 77 y/o female with Frontotemporal dementia who presents to [facility] ER via EMS for evaluation of injuries sustained from fall trauma today. Resides at [facility] in [place], [place] under the care of Dr Brunson. Family reports dementia has been progressive over past months. Her level of alertness and interaction varies. Today, had fall trauma round 1230 this afternoon. Report of hitting head but not losing consciousness. Mobile x-ray obtain of her left hip revealing left intertrochanteric femur fracture. Patient transported to [facility] vian EMS for evaluation. Was give 25mcg Fenatyl en route. In ER, CXR showing no acute pathology, UA negative for infection, CMP remarkable for BUN at 29 and glucose of 124. CT brain showed small acute left frontal subdural hematoma. 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 Family did not feel patient would wished to be transferred to [place] for neurosurgical intervention. With her hip fracture, they are open to staying at [facility] for surgical repair of her hip fracture primarily to improve her comfort level. Family has worry the functional recovery from hip surgery will be challenging due to her dementia. Indeed, she is still recovering from an old right humeral fracture-has decreased mobility/function to right shoulder and variable pain. Dr Chambers contacted from ED regarding hip fracture. Dr Baptiste contacted and arrangements for inpatient admission at [facility] made. Anticipated length of stay is thought to be greater than 2 midnights. Objective Vital signs: Temperature 99.0 F 11/10/17 08:22 Pulse Rate 72 11/10/17 08:22 Respiratory Rate 16 11/10/17 08:22 Blood Pressure 138/81 11/10/17 08:22 Pulse Oximetry 93 11/10/17 08:22 Rhythm: Normal Sinus Rhythm Height/Weight/BMI: Height 1.57 m Weight 61.9 kg Body Mass Index 22.1 - Constitutional Present: no acute distress, well nourished, well developed - Routine HEENT Exam Eye: Present: EOMI ENT: Present: mucous membranes moist, dentition normal - Routine Respiratory Exam Present: CTA bilaterally. Absent: wheezes - Routine Cardiovascular Exam Present: RRR, S1, S2. Absent: murmur - Routine Abdominal Exam Present: soft, normoactive bowel sounds, non distended. Absent: tenderness - Routine Extremities Exam Present: no edema - Routine Skin Exam Present: intact, dry, warm - Routine Neurological Exam Present: alert, CN II-XII intact - Routine Lymphatic Exam Lymphatic: Absent: adenopathy - Routine Psychiatric Exam Present: cooperative Hospital Course This is a general summary of the patient's hospital course. For more details refer to the complete medical record. Hospital course: 11/05/17 Admit patient to inpatient status at [facility] under the care of Dr Baptiste. Left intertrochanteric hip fracture requiring surgical repair. Anticipate greater than 2 midnights of care needed. Consult with Dr Chambers for orthopedic evaluation and surgical recommendations for hip fracture. Pain control with MS. Will continue with patient home acetaminophen and tramadol as needed. Perchlorperazine and ondansetron as needed for nausea. Bed rest preoperatively to minimize pain. Work to mobilize patient with PT/OT post op. Granger to dependent drainage to monitor urine output and minimized need to get up preop. Work to remove Granger as soon as possible post op. IS for pulmonary toilet. Start routine Senna Plus BID to help bowel function. Continue pt's routine Miralax and prn medications. Patient has been typed and screened in anticipation of potential blood loss from her injury/surgery. Check Vitamin D level secondary to fragility fracture. Start calcium with vit D 600 BID. With patient's advanced dementia will hold on consult for metabolic bone health. NPO after midnight in anticipation of surgery tomorrow. Start NS at 75cc/hr this evening for hydration. Recheck CT brain tomorrow am to monitor subdural hematoma. Recommend against use of Lovenox in post op setting due to SDH. Repeat CBC in am due to leukocytosis and to monitor hemoglobin. Will recheck BMP in am due to IVF use. Home medications will continue. Involve case management to help with discharge disposition - anticipate return to [facility] for care at discharge. Discussed with family about surgical intervention. They are agreeable with surgery from a comfort measure. Their concern is that rehabilitation gain will be minimal and slow due to her dementia. Code status discussed. Family reiterated Do Not Resuscitate, which is in concordance with [place] documentation. Care to return to Dr Brunson at time of discharge from [facility]. 11/06/17 OP Day: ORIF with cephalomedullary device of left three-part intertrochanteric hip fracture. Tolerated surgery well. Will continue with IVF, decreasing as oral drive improves. Continue Granger to DD as urine output was decreased overnight. Try to remove in near future. Post op pain control. Continue to work for bowel function. PT/OT as able - suspect with patients dementia gains will be slow. CM making care plans for return to [facility] for recovery once she is medically stable. 11/07/17 Continue IVF at 50 cc/hour but will change to 1/2NS + KCL due to hypokalemia. 2 units PRBC to be given this AM with 20 mg IV lasix in between and Hb recheck this afternoon. Continue off all anticoagulation. Continue granger to DD today, will plan to remove tomorrow. Follow pending Vit D level. If ongoing fevers will reculture urine and obtain CXR, suspect mild elevation in temp due to PRBC. Keep NPO acutely until more able to awaken and take nutrition. PT/OT as able - suspect with patients dementia gains will be slow and she is poorly responsive today. CM making care plans for return to [facility] for recovery once she is medically stable. Recheck renal panel, CBC, Mg in AM for surveillance. 11/08/17 Hold further maintenance fluids Resume po meds if tolerating oral intake KCl 40 meq IV over 4 hours this morning Continue off all anticoagulation. Discontinue granger today Start cholecalciferol 2000 units daily for replacement PT/OT as able - suspect with patients dementia gains will be slow but she is more responsive today CM making care plans for return to [facility] for recovery once she is medically stable. Recheck renal panel, CBC, in AM for surveillance. 11/09/17 Hemoglobin remains low, however, is stable at 7.7. No Anticoagulation. Continues to be mildly hypokalemic, will give oral supplementation at noon today. Tylenol available as needed for pain control Encourage work with PT and OT for ongoing strengthening CM making care plans for return to [facility] Case discussed with attending, Dr. Patten 11/10/17-discharge Mara is seen and examined today. Prior to discharge. She continues to be alert , however, is pleasantly confused. She does not appear to be in any acute distress and is breathing comfortably on room air. Her postoperative hemoglobin has remained stable at 8.3 today. She is planning to return to [facility] for skilled rehabilitation. We'll discharge her on phosphorus supplementation. Serum phosphorus level will need to be followed in the outpatient setting. She will follow up with primary care, Dr. Brunson as well as Dr. Chambers for orthopedic evaluation. She is not sent on any postoperative anticoagulation as this is contraindicated given her subdural hematoma. She is discharged in stable condition. Time spent with patient: discharge greater than 30 minutes Resuscitation Status: Do Not Resuscitate Discharge Plan - Discharge Disposition Discharge Date: 11/10/17 Disposition: 03 To U Not [facility] (SNF) *Condition: Stable Reason For Visit (Visit label in EMR): L Intertrochanteric Femur Fracture - Discharge Medications *Discharge Medications: New Calcium 600 + D [Caltrate + D] 1 tab PO BID tab Continue Melatonin/Pyridoxine [Melatonin 5 mg Tablet] 5 mg PO HS #0 Acetaminophen 650 mg PO Q4HR PRN #0 PRN Reason: PAIN Meloxicam 7.5 mg PO HS Sertraline [Zoloft] 100 mg PO DAILY OLANZapine [Zyprexa] 2.5 mg PO HS Milk of Magnesia [Mom] 30 ml PO DAILY PRN PRN Reason: Indigestion PEG 3350 17gm PACKET [Miralax] 17 gm PO DAILY Famotidine [Pepcid] 20 mg PO DAILY Levothyroxine Tab [Synthroid] 50 mcg PO DAILY Dextran 70/Hypromellose [Artificial Tears Eye Drops] 1 drop EACH EYE Q6H Discontinued Tramadol [Ultram] 50 - 100 mg PO Q6H PRN PRN Reason: Pain - Discharge Packet/Instructions *Diet: Regular *Activity: WBAT *Pain Management/Treatment: Tylenol as needed for pain *Wound Care: Keep wounds dry until 11/25/17. Change the dressing only as needed. *Expected Signs/Symptoms: Improvement in pain *Notify Physician if: Increasing pain, fever, drainage from incision or othe concerning symptoms *During Business Hours Contact: Dr Brunson *After Business Hours Contact: Page Provider oncall for Dr Brunson *Pending Lab/Results: No Pending Lab - Referrals/Follow Up *Referrals/Follow Up: Audra Brunson MD [Primary Care Provider] - (follow up apt in 1 week) Remi Del Rio PA [Physician Deputy Bailiff] - 11/25/17 10:30 am - Patient Handouts Patient Handouts: [facility] Ortho Postop Instructions - Dismissal Complete Discharge Instructions are:: Complete Physician Narrative - Narrative Physician: Cynthia Patten MD Attestation Narrative: Date: 11/10/17 Time: 11:50 AM-I examined the patient independently. I reviewed this chart, the patient history, and the CUSTOMER LOYALTY REPRESENTATIVE's/PA's documented findings as above. We discussed and formulated the assessment and plan as above with the additions below.-Dr. Patten The patient was seen this morning in her room. She sitting up in the recliner and is very pleasant and appears comfortable. She has significant dementia and is not able to answer questions appropriately. She answers questions with non- sequiturs. On exam she is alert. Chest is clear to auscultation. Cardiovascular reveals a regular rate and rhythm with an occasional ectopic beat. Abdomen is soft and nontender. Extremities are free of edema. Impression and plan The patient is recovering well from her femur fracture repair. Anemia has stabilized. She did receive 2 units of blood on 11/07/2016. The patient appears stable after subdural hematoma. She will not be on anticoagulation. Hypokalemia has improved with replacement. Hypophosphatemia has improved with replacement. We'll check a CBC and renal panel on 11/13/2017.
[2017-11-10] MEDS: SALINE FLUSH 10ml SYRINGE IVF PRN (14:32)
[2017-11-10 15:42] VITALS: BP 150/83; PULSE 82; TEMP 98; O2SAT 95
== END 2017-11-10 16:10 | DRG 956 ==
LOC: ED 15:37 → SUATTDRO 17:28 → SRG 17:28
PROVIDERS: ADMIT Hospitalist; ATTEND Internal Medicine